=== PATIENT | female | born 1960 | race Caucasian/White ===

== ENCOUNTER 2020-05-01 14:26 | Outpatient (CLI) | payer MEDICARE, SELFPAY ==
[2020-05-01 14:47] LABS: Basophils Absolute Auto 0.04 K/mm3 (0.00-0.10); Basophils Percent Auto 0.6 % (0.0-1.0); Eosinophils Absolute Auto 0.08 K/mm3 (0.02-0.50); Eosinophils Percent Auto 1.2 % (1.0-6.0); Hematocrit 36.8 % (35.0-49.0); Hemoglobin 12.1 g/dL (12.0-15.0); Immature Granulocyte Absolute 0.03 K/mm3 (0.00-0.00); Immature Granulocyte Percent A 0.5 % (0.0-0.0); Lymphocytes Absolute Auto 2.01 K/mm3 (1.10-4.50); Lymphocytes Percent Auto 30.3 % (18.0-42.0); Mean Corpuscular HGB Conc 32.9 g/dL (32.0-36.0); Mean Corpuscular Hemoglobin 29.2 pg (27.0-31.0); Mean Corpuscular Volume 88.7 fL (78.0-102.0); Mean Platelet Volume 8.6 fl (9.2-11.8); Monocytes Absolute Auto 0.62 K/mm3 (0.10-0.90); Monocytes Percent Auto 9.4 % (2.0-11.0); Neutrophils Absolute Auto 3.9 K/mm3 (1.7-7.2); Platelet Count Result 261 K/mm3 (150-420); Red Blood Count 4.15 M/mm3 (4.20-5.40); Red Cell Distribution Width 15.1 % (11.6-14.4); White Blood Count 6.6 K/mm3 (4.8-10.8)
[2020-05-01 15:27] LABS: Alanine Aminotransferase 34 U/L (14-59); Albumin Level 4.3 g/dL (3.4-5.0); Alkaline Phosphatase 90 U/L (46-116); Anion Gap 11 mmol/L (8-16); Aspartate Amino Transferase 17 U/L (15-37); Bilirubin,Total 0.3 mg/dL (0.00-1.00); Blood Urea Nitrogen 21 mg/dL (7-18); Calcium 9.7 mg/dL (8.5-10.1); Carbon Dioxide 27 mmol/L (21-32); Chloride 102 mmol/L (98-108); Cholesterol 195 mg/dL (0-200); Estimated Glomerular Filt Rate 40; Glucose 101 mg/dL (70-99); HDL Direct 50 mg/dL (40-60); LDL Cholesterol Calculated 73 mg/dL (<130); Osmolality Calculated 293 mOsm/kg (285-295); Potassium 4.1 mmol/L (3.5-5.1); Sodium 140 mmol/L (136-145); Total Protein 7.6 g/dL (6.4-8.2); Triglycerides 358 mg/dL (0-150)
[2020-05-01 15:46] LABS: Thyroid Stimulating Hormone Reflex 3.28 u/IU/mL (0.36-3.74)
== END 2020-05-01 14:27 | disposition home or self-care (01) ==
LOC: CHSLAB 14:27
PROVIDERS: PCP Family Medicine; Visit Provider Family Medicine
DX: I10 Essential (primary) hypertension (principal)
CPT/HCPCS: 36415; 80053; 80061; 84443; 85025

== ENCOUNTER 2020-12-18 10:24 | Outpatient (CLI) | payer MEDICARE, SELFPAY ==
--- NOTE | ~2020-12-18 | XR_ITS ---
EXAMINATION: XR foot LT 2V EXAM DATE: 12/18/2020 10:37 INDICATION: Lt Heel Pain,Nki,?Plantar fasciitis. TECHNIQUE: Frontal and lateral projections of the left foot. There is no prior study for comparison . FINDINGS: Small to moderate-sized left calcaneal posterior spur. No periosteal reaction or band of s clerosis to suggest subacute stress fracture. There is mild 1st metatarsophalangeal primary osteoarth ritis. There are no acute fractures or dislocations identified. There is no subcutaneous gas. The s oft tissue is unremarkable. There are no radiopaque foreign bodies. IMPRESSION: 1. Mild left 1st MTP osteoarthritis. 2. Posterior calcaneal spur. Reviewed, dictated and finalized at location B.
== END 2020-12-18 10:25 | disposition home or self-care (01) ==
LOC: CHSIMG 10:25
PROVIDERS: PCP Family Medicine; Visit Provider Family Medicine
DX: M79.672 Pain in left foot (principal); M76.62 Achilles tendinitis, left leg
CPT/HCPCS: 73620

== ENCOUNTER 2021-05-12 08:49 | Outpatient (CLI) | payer MEDICARE, SELFPAY ==
[2021-05-12 09:40] LABS: Anion Gap 10 mmol/L (8-16); Blood Urea Nitrogen 35 mg/dL (7-18); Calcium 9.3 mg/dL (8.5-10.1); Carbon Dioxide 25 mmol/L (21-32); Chloride 102 mmol/L (98-108); Estimated Glomerular Filt Rate 34; Glucose 106 mg/dL (70-99); Osmolality Calculated 292 mOsm/kg (285-295); Phosphorus 4.4 mg/dL (2.6-4.7); Potassium 4.3 mmol/L (3.5-5.1); Sodium 137 mmol/L (136-145)
[2021-05-12 09:41] LABS: Total Protein Urine Random 17.4 mg/dL (0.0-11.9); Ur Ttl Prot Creatinine Ratio 0.14 mg/mg (0-0.20)
[2021-05-15 13:10] LABS: Parathyroid Intact 30 pg/mL (14-64)
[2021-05-15 15:12] LABS: Vitamin D 25 Hydroxy 39 ng/mL (30-100)
== END 2021-05-12 08:50 | disposition home or self-care (01) ==
LOC: CHSLAB 08:52
PROVIDERS: PCP Nurse Practitioner Family; Visit Provider Internal Medicine Nephrology
DX: E55.9 Vitamin D deficiency, unspecified (principal); I12.9 Hypertensive chronic kidney disease with stage 1 through stage 4 chronic kidney disease, or unspecified chronic kidney disease; N18.31 Chronic kidney disease, stage 3a
CPT/HCPCS: 36415; 80069; 82306; 82570; 83970; 84156

== ENCOUNTER 2021-06-10 08:43 | Outpatient (RCR) | payer MEDICARE, SELFPAY ==
--- NOTE | 2021-06-10 10:05 | PTOPEVAL ---
Thank you for referring Nicki Romano to [facility].? The patient is scheduled to be seen for therapy? ____x/week for ___ weeks. Please review, sign, date and return this plan of care ANDERSON. I agree with and certify that the following plan of care is medically necessary. Referring Physician Date Admitting Provider: Attending Provider: Yann Jacobs DPM Referring Provider: DiazPT Outpatient Evaluation Start: 06/10/21 09:07 Freq: Status: Active Protocol: Document 06/10/21 09:05 [facility] (Rec: 06/10/21 10:04 JUAN [id number]) Therapy Assessment Status Assessment Status Assessment Status Evaluation Outpatient Past Medical History Cardiovascular History Hx Hypertension Yes Respiratory History Hx Chronic Obstructive Pulmonary Disease Yes: dx, denies (COPD) Gastrointestinal History Hx Gastroesophageal Reflux Disease Yes Musculoskeletal History Hx Fractures Yes: rt wrist, hardware post- op HEENT History Hx Tonsillectomy Yes Psychosocial History Hx Anxiety Yes Hx Depression Yes Evaluation Information Problem Diagnosis R plantar and L heel pain Onset 06/02/21 Additional Evaluation Detail LEFS = Subjective Information patient reports about 4-5 Query Text:As Reported By Patient/ months ago she began having Family pain in the L heel. she reports she is now pain free in the L heel as she was in a boot for 2 months. she reports since being in the boot she has developed plantar foot pain in the R foot from overuse. she reports she has increased pain in the R foot with standing and walking. she reports she has ahd an injection to the R foot. she reports no help from injections. she reports no imaging as of this date. Prior Level of Function Comments Additional Prior Level of Function prior to 4-5 months ago, no Comments issues with either foot/ankle. she reports she would like to get back to walk full grocery store and complete home activities without pain. Pain Assessment Timing of Pain Assessment Timing of Pain Assessment Assessment Pain Scale Pain Scale Used Numeric (1 - 10) Self Report Pain Assessment
--- NOTE | 2021-06-18 14:54 | PCPTNOTE ---
Pt. contacted the clinic via phone stating that she was hurting too bad and needed a sleep study. She stated that she did not have time to attend therapy and requested discharge. Please refer to her last daily note for pt. discharge status. Haseeb Cox, MPT
== END 2021-06-17 14:08 | disposition home or self-care (01) ==
LOC: CHSPT 08:43
PROVIDERS: PCP Podiatrist; Visit Provider Podiatrist
DX: M72.2 Plantar fascial fibromatosis (principal); M76.62 Achilles tendinitis, left leg
CPT/HCPCS: 97110; 97140; 97161

== ENCOUNTER 2021-07-07 10:55 | Emergency (ER) | payer MEDICARE, SELFPAY ==
--- NOTE | ~2021-07-07 | CT_ITS ---
EXAMINATION: CT brain wo con DATE: 07/07/2021 11:51 INDICATION: Dizziness. Vertigo. Right ear pain. TECHNIQUE: Computed tomography (CT) of the head was performed without intravenous contrast. The mA wa s adjusted according to patient size. Iterative reconstruction technique was employed. The dose-lengt h product was 605.33 mGy-cm. COMPARISON: None FINDINGS: There is a small old infarct in left cerebellum. There are scattered areas of low attenuati on in the cerebral white matter. There is no intracranial hemorrhage, acute infarction, or abnormal i ntracranial mass lesion. The ventricles are normal in size. There is mild mucosal thickening in the p aranasal sinuses. The mastoid air cells are normal. The orbits are normal. IMPRESSION: 1. Small old infarct in left cerebellum. 2. Mild nonspecific cerebral white matter disease, which likely represents chronic small vessel ische jessica disease. Reviewed, dictated and finalized at location B. IMPRESSION: 1. Small old infarct in left cerebellum. 2. 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
[2021-07-07 11:00] VITALS: BP 165/88; PULSE 60; RESP 16; TEMP 36.5; O2SAT 97
--- NOTE | 2021-07-07 11:12 | ED.DIZZY ---
HPI - Dizziness General Chief Complaint: Dizziness Stated Complaint: DIZZY Time Seen by Provider: 07/07/21 11:13 History of Present Illness HPI Narrative: 60-year-old female patient is sent to the ED are by the nurse practitioner from a local clinic for further evaluation of dizziness. The patient states that she has had dizziness for the last 1 week or so where she feels that the room is spinning. The symptoms get worse as she gets up from a lying down position to sitting up or standing up. She has not sustained any falls or felt like passing out at any time until now. And she did explain experiencing some palpitations in the middle of the last week while she was resting. She denies any associated headache however she does have an ache in the right ear which was preceded by upper respiratory tract infection symptoms about a week ago and was diagnosed as having a viral syndrome. Patient did have a negative COVID and flu test done at that time. She is otherwise COVID vaccinated and has had no known exposures. She denies any chest pain. She denies any neck or jaw pain. She denies any tremors. Related Data Home Medications Medication Instructions Recorded Confirmed alprazolam 1 mg PO DAILY 01/20/19 07/07/21 aspirin 81 mg tablet,delayed 81 mg PO DAILY 05/01/20 07/07/21 release cholecalciferol (vitamin D3) 100 100 mcg PO DAILY 05/01/20 07/07/21 mcg (4,000 unit) capsule magnesium oxide 400 mg (241.3 mg 400 mg PO DAILY tablet 05/01/20 07/07/21 magnesium) tablet sertraline 50 mg tablet 100 mg PO DAILY tablet 08/01/20 07/07/21 quetiapine 200 mg tablet 200 mg PO QHS 06/02/21 07/07/21 lisinopril 5 mg PO DAILY 07/07/21 07/07/21 Allergies Allergy/AdvReac Type Severity Reaction Status Date / Time No Known Allergies Allergy Verified 07/07/21 11:18 Review of Systems Review of Systems: All systems reviewed & are unremarkable except as noted in HPI and below Constitutional: Constitutional: Reports as per HPI and Reports no additional constitutional complaints Eyes: Eyes: Reports as per HPI, Reports no additional eye complaints, Denies change in vision and Denies photophobia ENT: Reports system reviewed and no additional complaints, except as documented and Reports vertigo Comments: Right earache Cardiovascular: Cardiovascular: Reports as per HPI, Reports no additional cardiovascular complaints, Denies chest pain, Reports rapid heart rate, Denies radiating jaw, neck or arm pain and Denies slow heart rate Comments: had one episode of fast heart rate last week Respiratory: Respiratory: Reports as per HPI, Reports no additional respiratory complaints, Denies chest congestion, Denies cough, Denies dyspnea and Denies wheezing Gastrointestinal: Gastrointestinal: Reports no additional gastrointestinal complaints, Denies abdominal pain, Denies bloating, Denies heartburn, Denies diarrhea, Denies nausea and Denies vomiting Genitourinary: Genitourinary: Reports no additional female genitourinary complaints Musculoskeletal: Musculoskeletal: Reports no additional musculoskeletal complaints Integumentary/Breasts: Skin/Breast: Reports system reviewed and no additional complaints, except as docu Neurologic: Reports system reviewed and no additional complaints, except as documented Psychiatric: Psychiatric: Reports no additional psychiatric complaints Endocrine: Endocrine: Reports no additional endocrine complaints Hematologic/Lymphatic: Hematologic/Lymphatic: Reports no additional hematologic/lymphatic complaints Allergic/Immunologic: Allergic/Immunologic: Reports no additional allergic/immunologic complaints [facility] Past Medical History Medical History (Updated 07/07/21 @ 12:20 by Darlene Carcamo MD) CKD (chronic kidney disease) stage 3, GFR 30-59 ml/min COPD (chronic obstructive pulmonary disease) Depression Diverticulosis Dyslipidemia Hypertension Obesity PTSD (post-traumatic stress disorder) Upper respiratory infection S
--- NOTE | 2021-07-07 11:20 | ECG_ITS ---
Measurements Intervals [place] Rate: 49 P: 4 KS: 148 QRS: 7 QRSD: 84 T: 23 QT: 424 QTc: 384 Interpretive Statements SINUS BRADYCARDIA WITH SINUS ARRHYTHMIA MINIMAL Q WAVES- HIGH LATERAL LEADS ABNORMAL ECG Electronically Signed On 07-07-2021 11:50:39 CDT by Vladimir Garcia D.O.
[2021-07-07 11:36] LABS: Basophils Absolute Auto 0.02 K/mm3 (0.00-0.10); Basophils Percent Auto 0.4 % (0.0-1.0); Eosinophils Percent Auto 1.9 % (1.0-6.0); Hemoglobin 11.8 g/dL (12.0-15.0); Immature Granulocyte Absolute 0.04 K/mm3 (0.00-0.00); Immature Granulocyte Percent A 0.8 % (0.0-0.0); Lymphocytes Absolute Auto 1.44 K/mm3 (1.10-4.50); Lymphocytes Percent Auto 27.4 % (18.0-42.0); Mean Corpuscular HGB Conc 32.8 g/dL (32.0-36.0); Mean Corpuscular Hemoglobin 30.7 pg (27.0-31.0); Mean Corpuscular Volume 93.8 fL (78.0-102.0); Mean Platelet Volume 8.4 fl (9.2-11.8); Monocytes Absolute Auto 0.45 K/mm3 (0.10-0.90); Monocytes Percent Auto 8.6 % (2.0-11.0); Neutrophils Absolute Auto 3.2 K/mm3 (1.7-7.2); Neutrophils Percent Auto 60.9 % (50.0-70.0); Platelet Count Result 238 K/mm3 (150-420); Red Blood Count 3.84 M/mm3 (4.20-5.40); Red Cell Distribution Width 13.8 % (11.6-14.4); White Blood Count 5.3 K/mm3 (4.8-10.8)
[2021-07-07 12:02] LABS: Add Urine Microscopic? YES; Appearance Urine Clear (Clear); Bilirubin Urine Negative (Negative); Blood Urine Negative (Negative); Color Urine Light Yellow (Yellow); Glucose Urine UA Negative (Negative); Ketones Urine Negative (Negative); Leukocyte Esterase Ur Trace (Negative); Nitrate Urine Negative (Negative); Protein Urine Negative (Negative); Urobilinogen Urine 0.2 mg/dL (0.2-1.0); pH Urine 6.5 (5.0-8.0)
[2021-07-07 12:03] LABS: Alanine Aminotransferase 24 U/L (14-59); Albumin Level 3.7 g/dL (3.4-5.0); Alkaline Phosphatase 70 U/L (46-116); Anion Gap 7 mmol/L (8-16); Aspartate Amino Transferase 16 U/L (15-37); Bilirubin,Total 0.3 mg/dL (0.00-1.00); Blood Urea Nitrogen 20 mg/dL (7-18); Calcium 8.7 mg/dL (8.5-10.1); Carbon Dioxide 28 mmol/L (21-32); Chloride 103 mmol/L (98-108); Estimated CRCL calculation 40 ml/min; Estimated Glomerular Filt Rate 42; Free T4 Free Thyroxine 0.79 ng/dL (0.76-1.46); Glucose 91 mg/dL (70-99); Magnesium 2.2 mg/dL (1.8-2.4); Osmolality Calculated 288 mOsm/kg (285-295); Potassium 4.5 mmol/L (3.5-5.1); Sodium 138 mmol/L (136-145); Total Protein 6.9 g/dL (6.4-8.2); Troponin I 5.9 ng/L (0.00-60.4)
[2021-07-07 12:05] LABS: Thyroid Stimulating Hormone 4.28 uIU/mL (0.36-3.74)
[2021-07-07 12:10] LABS: Bacteria Urine Trace /hpf; RBC Urine 0-2 /hpf (0-2); Squamous Epithelial Cell Urine None seen /hpf (Few); WBC Urine 0-3 /hpf (0-3)
[2021-07-07 12:21] VITALS: BP 139/88; PULSE 60; RESP 16; O2SAT 98
--- NOTE | 2021-07-07 12:39 | PC.NURSE ---
pt asked again to call someone to come get her and advised not to drive. pt states she does not have anyone to call. pmd office staff contacted. there is a daughter on her chart. pt asked to call daughter to help her get home. pt declined. stated daughter is going home to [place]. pt refused assistance. pt got into her car and started looking at her phone.
== END 2021-07-07 12:23 | disposition home or self-care (01) ==
PROVIDERS: Emergency Provider Emergency Medicine; PCP Nurse Practitioner Family
DX: R42 Dizziness and giddiness (principal); I12.9 Hypertensive chronic kidney disease with stage 1 through stage 4 chronic kidney disease, or unspecified chronic kidney disease; N18.30 Chronic kidney disease, stage 3 unspecified; J44.9 Chronic obstructive pulmonary disease, unspecified; E78.5 Hyperlipidemia, unspecified
CPT/HCPCS: 36415; 70450; 80053; 81001; 83735; 84439; 84443; 84484; 85025; 93005; 99284

== ENCOUNTER 2021-08-05 17:57 | Emergency (ER) | payer MEDICARE, SELFPAY ==
--- NOTE | ~2021-08-05 | XR_ITS ---
EXAMINATION: XR chest 1V portable Exam Date/Time: 08/05/2021 19:00 CDT HISTORY: tightness across center of chest Comparison: 01/09/2019. RESULT: Lines, tubes, and devices: None. Lungs and pleura: Clear. Cardiomediastinal silhouette: Stable cardiomediastinal silhouette. Other: No acute osseous or upper abdominal finding. IMPRESSION: No acute cardiopulmonary process. Reviewed, dictated and finalized at location K.
[2021-08-05 18:00] VITALS: BP 175/93; PULSE 70; RESP 20; TEMP 36.4; O2SAT 99
--- NOTE | 2021-08-05 18:58 | ECG_ITS ---
Measurements Intervals [place] Rate: 61 P: -60 LA: 103 QRS: -1 QRSD: 85 T: 21 QT: 389 QTc: 392 Interpretive Statements ECTOPIC ATRIAL RHYTHM WITH SHORT LA INTERVAL NONSPECIFIC T-WAVE ABNORMALITY ABNORMAL ECG COMPARED TO ECG 07/07/2021 11:35:51 ECTOPIC ATRIAL RHYTHM NOW PRESENT Electronically Signed On 08-06-2021 10:01:33 CDT by Bart Gomez M.D.
[2021-08-05 19:12] LABS: Basophils Absolute Auto 0.06 K/mm3 (0.00-0.10); Basophils Percent Auto 0.7 % (0.0-1.0); Eosinophils Absolute Auto 0.02 K/mm3 (0.02-0.50); Eosinophils Percent Auto 0.2 % (1.0-6.0); Hematocrit 35.8 % (35.0-49.0); Hemoglobin 12.1 g/dL (12.0-15.0); Immature Granulocyte Absolute 0.16 K/mm3 (0.00-0.00); Immature Granulocyte Percent A 1.7 % (0.0-0.0); Lymphocytes Absolute Auto 3.37 K/mm3 (1.10-4.50); Lymphocytes Percent Auto 36.6 % (18.0-42.0); Mean Corpuscular HGB Conc 33.8 g/dL (32.0-36.0); Mean Corpuscular Hemoglobin 31.2 pg (27.0-31.0); Mean Corpuscular Volume 92.3 fL (78.0-102.0); Mean Platelet Volume 8.4 fl (9.2-11.8); Monocytes Absolute Auto 0.95 K/mm3 (0.10-0.90); Monocytes Percent Auto 10.3 % (2.0-11.0); Neutrophils Absolute Auto 4.7 K/mm3 (1.7-7.2); Neutrophils Percent Auto 50.5 % (50.0-70.0); Platelet Count Result 262 K/mm3 (150-420); Red Blood Count 3.88 M/mm3 (4.20-5.40); Red Cell Distribution Width 14.3 % (11.6-14.4); White Blood Count 9.2 K/mm3 (4.8-10.8)
[2021-08-05] MEDS: SODIUM CHLORIDE 0.9% IV 1,000 ML 999 ML IV CONT (19:29)
[2021-08-05 19:31] LABS: Alanine Aminotransferase 29 U/L (14-59); Albumin Level 3.6 g/dL (3.4-5.0); Alkaline Phosphatase 63 U/L (46-116); Anion Gap 8 mmol/L (8-16); Aspartate Amino Transferase 13 U/L (15-37); Bilirubin,Total 0.2 mg/dL (0.00-1.00); Blood Urea Nitrogen 26 mg/dL (7-18); Calcium 8.6 mg/dL (8.5-10.1); Carbon Dioxide 29 mmol/L (21-32); Chloride 103 mmol/L (98-108); Estimated Glomerular Filt Rate 35; Glucose 144 mg/dL (70-99); Osmolality Calculated 297 mOsm/kg (285-295); Potassium 3.6 mmol/L (3.5-5.1); Sodium 140 mmol/L (136-145); Total Protein 7.1 g/dL (6.4-8.2)
[2021-08-05] MEDS: MECLIZINE HCL 25 MG TABLET 50 MG PO (19:31)
[2021-08-05 19:32] LABS: Troponin I 6.8 ng/L (0.00-60.4)
--- NOTE | 2021-08-05 19:47 | ED.GENADULT ---
HPI - General Adult General Chief complaint: Chest Pain Stated complaint: AMB History of Present Illness HPI narrative: the patient is a 60-year-old woman with a history of anxiety disorder, hyperlipidemia, GERD, obesity, depression, hypertension, PTSD, and chronic kidney disease. She is a nonsmoker. She takes aspirin 81 mg once daily. She Had seen her primary care physician on 07/24/2021, 12 days ago, due to right ear pain and continued symptoms of dizziness and upper respiratory infection symptoms. She was treated with meclizine and Zyrtec. The dizziness had resolved subsequently. The patient did not feel well today. She had chest pressure in the center aspect of her chest radiating to her back, associated with dizziness but no nausea or vomiting. No abdominal pain. The pressure was mild and resolved subsequently. She did receive Zofran 4 mg IV by EMS. No diarrhea or constipation. No motor or sensory deficits. No headache. No falls or loss of consciousness or syncope or seizures. No blurred vision or diplopia. No dyspnea or cough or upper respiratory tract infection symptoms. Related Data Home Medications Medication Instructions Recorded Confirmed alprazolam 1 mg tablet 1 mg PO DAILY 01/20/19 07/07/21 aspirin 81 mg tablet,delayed 81 mg PO DAILY 05/01/20 07/07/21 release (Adult Aspirin Regimen) cholecalciferol (vitamin D3) 100 100 mcg PO DAILY 05/01/20 07/07/21 mcg (4,000 unit) capsule magnesium oxide 400 mg (241.3 mg 400 mg PO DAILY 05/01/20 07/07/21 magnesium) tablet sertraline 50 mg tablet (Zoloft) 100 mg PO DAILY 08/01/20 07/07/21 quetiapine 200 mg tablet (Seroquel) 200 mg PO QHS 06/02/21 07/07/21 lisinopril 5 mg tablet 5 mg PO DAILY 07/07/21 07/07/21 Allergies Allergy/AdvReac Type Severity Reaction Status Date / Time No Known Allergies Allergy Verified 07/24/21 10:49 Review of Systems Review of Systems: All systems reviewed & are unremarkable except as noted in HPI and below Constitutional: Constitutional: Reports no additional constitutional complaints, Denies anorexia, Denies body ache(s), Denies chills, Denies excessive sweating, Denies fatigue, Denies fever(s), Denies frequent falls, Denies headache(s), Reports malaise and Denies poor appetite Eyes: Eyes: Reports no additional eye complaints, Denies blurry vision, Denies change in vision, Denies irritation, Denies itchy eyes and Denies photophobia ENT: Reports system reviewed and no additional complaints, except as documented, Reports Normal hearing present, Denies change in voice, Denies dysphagia, Denies vertigo, Reports dizziness, Denies ear discharge, Denies headache(s), Denies hearing loss, Denies hoarseness, Denies nasal congestion, Denies neck pain, Denies sinus pressure, Denies sore throat and Denies throat swelling Cardiovascular: Cardiovascular: Reports no additional cardiovascular complaints, Reports chest pain (described as chest pressure not pain.), Denies syncope, Denies rapid heart rate, Denies irregular heart rhythm, Denies leg edema, Denies dyspnea and Denies slow heart rate Respiratory: Respiratory: Reports no additional respiratory complaints, Denies cough, Denies dyspnea, Denies stridor and Denies wheezing Gastrointestinal: Gastrointestinal: Reports no additional gastrointestinal complaints, Denies abdominal pain, Denies melena, Denies hematochezia, Denies dysphagia, Denies diarrhea, Denies nausea and Denies vomiting Genitourinary: Genitourinary: Denies hematuria, Denies urinary frequency, Denies dysuria, Denies flank pain and Denies urinary urgency Musculoskeletal: Musculoskeletal: Reports no additional musculoskeletal complaints, Denies abnormal gait, Denies back pain, Denies myalgias, Denies arthralgias, Denies joint swelling, Denies limited range of motion, Denies muscle cramps, Denies muscle weakness, Denies neck pain and Denies numbness Integumentary/Breasts: Skin/Breast: Reports system reviewed and no additional complain
[2021-08-05 19:50] VITALS: BP 163/87; PULSE 53
[2021-08-05 19:54] VITALS: BP 185/93; PULSE 53
[2021-08-05 19:59] VITALS: BP 190/85; PULSE 65
--- NOTE | 2021-08-05 20:10 | PC.NURSE ---
no need to collect urine prior to patient discharge per Md Donnelly
[2021-08-05 20:55] VITALS: BP 157/85; PULSE 56; RESP 18; TEMP 36.7; O2SAT 98
== END 2021-08-05 21:00 | disposition home or self-care (01) ==
PROVIDERS: Emergency Provider Emergency Medicine; PCP Nurse Practitioner Family
DX: R07.9 Chest pain, unspecified (principal); R42 Dizziness and giddiness; E78.5 Hyperlipidemia, unspecified; K21.9 Gastro-esophageal reflux disease without esophagitis; I10 Essential (primary) hypertension; N18.9 Chronic kidney disease, unspecified; J44.9 Chronic obstructive pulmonary disease, unspecified
CPT/HCPCS: 36415; 71045; 80053; 84484; 85025; 93005; 96360; 99284; A9270; J7030

== ENCOUNTER 2021-10-21 13:56 | Outpatient (CLI) | payer MEDICARE, SELFPAY ==
[2021-10-21 14:11] LABS: Hematocrit 35.6 % (35.0-49.0); Hemoglobin 11.9 g/dL (12.0-15.0); Mean Corpuscular HGB Conc 33.4 g/dL (32.0-36.0); Mean Corpuscular Hemoglobin 31.4 pg (27.0-31.0); Mean Corpuscular Volume 93.9 fL (78.0-102.0); Mean Platelet Volume 8.6 fl (9.2-11.8); Platelet Count Result 217 K/mm3 (150-420); Red Blood Count 3.79 M/mm3 (4.20-5.40); White Blood Count 5.9 K/mm3 (4.8-10.8)
[2021-10-21 14:23] LABS: Hemoglobin A1C 5.8 % (<5.7)
[2021-10-21 14:52] LABS: Alanine Aminotransferase 33 U/L (14-59); Albumin Level 4.4 g/dL (3.4-5.0); Alkaline Phosphatase 64 U/L (46-116); Anion Gap 8 mmol/L (8-16); Aspartate Amino Transferase 24 U/L (15-37); Bilirubin,Total 0.5 mg/dL (0.00-1.00); Blood Urea Nitrogen 19 mg/dL (7-18); Calcium 9.7 mg/dL (8.5-10.1); Carbon Dioxide 28 mmol/L (21-32); Chloride 103 mmol/L (98-108); Estimated Glomerular Filt Rate 37; Glucose 98 mg/dL (70-99); Osmolality Calculated 290 mOsm/kg (285-295); Potassium 4.3 mmol/L (3.5-5.1); Sodium 139 mmol/L (136-145); Total Protein 7.5 g/dL (6.4-8.2); Vitamin B12 779 pg/mL (193-986)
[2021-10-21 14:54] LABS: Thyroid Stimulating Hormone Reflex 3.48 u/IU/mL (0.36-3.74)
== END 2021-10-21 13:57 | disposition home or self-care (01) ==
LOC: CHSLAB 14:00
PROVIDERS: PCP Family Medicine; Visit Provider Family Medicine
DX: R41.89 Other symptoms and signs involving cognitive functions and awareness (principal); E11.9 Type 2 diabetes mellitus without complications; E53.8 Deficiency of other specified B group vitamins
CPT/HCPCS: 36415; 80053; 82607; 82746; 83036; 84443; 85027

== ENCOUNTER 2021-10-28 08:33 | Outpatient (CLI) | payer MEDICARE, MEDICAID, SELFPAY ==
--- NOTE | ~2021-10-28 | MR_ITS ---
EXAMINATION: MR brain/brain stem wo con DATE: 10/28/2021 09:12 INDICATION: Cognitive decline. Unsteady gait. Headache. TECHNIQUE: Magnetic resonance imaging (MRI) of the brain and brainstem was performed without intraven ous contrast. COMPARISON: Head CT 07/07/2021 FINDINGS: There is a small acute infarct in right occipital lobe. There are scattered areas of nonspe cific increased T2-weighted signal intensity in the cerebral white matter. There is a small old infar ct in left cerebellum. There is no intracranial hemorrhage or abnormal mass lesion. The ventricles ar e normal in size. The orbits are normal. There is mild mucosal thickening in the ethmoid sinuses. IMPRESSION: 1. Small acute infarct in right occipital lobe. 2. Small old infarct in left cerebellum. 3. Mild nonspecific cerebral white matter disease, which likely represents chronic small vessel ische jessica disease. Reviewed, dictated and finalized at location A. IMPRESSION: 1. Small acute infarct in right occipital lobe. 2. Small old infarct in left cerebellum. 3. Mild nonspecific cerebral white matter disease, which likely represents machine former yady small vessel ischemic disease.
== END 2021-10-28 08:34 | disposition home or self-care (01) ==
LOC: CHSIMG 08:34
PROVIDERS: PCP Family Medicine; Visit Provider Family Medicine
DX: R41.89 Other symptoms and signs involving cognitive functions and awareness (principal)
CPT/HCPCS: 70551

== ENCOUNTER 2021-10-30 12:56 | Outpatient (CLI) | payer MEDICARE, SELFPAY ==
[2021-10-30 13:13] LABS: Hematocrit 34.9 % (35.0-49.0); Hemoglobin 11.4 g/dL (12.0-15.0); Mean Corpuscular HGB Conc 32.7 g/dL (32.0-36.0); Mean Corpuscular Hemoglobin 31.1 pg (27.0-31.0); Mean Corpuscular Volume 95.1 fL (78.0-102.0); Mean Platelet Volume 8.4 fl (9.2-11.8); Platelet Count Result 214 K/mm3 (150-420); Red Blood Count 3.67 M/mm3 (4.20-5.40); White Blood Count 8.9 K/mm3 (4.8-10.8)
[2021-10-30 13:29] LABS: Alanine Aminotransferase 26 U/L (14-59); Albumin Level 3.9 g/dL (3.4-5.0); Alkaline Phosphatase 73 U/L (46-116); Anion Gap 9 mmol/L (8-16); Aspartate Amino Transferase 18 U/L (15-37); Bilirubin,Total 0.5 mg/dL (0.00-1.00); Blood Urea Nitrogen 22 mg/dL (7-18); Calcium 9.4 mg/dL (8.5-10.1); Carbon Dioxide 27 mmol/L (21-32); Chloride 104 mmol/L (98-108); Estimated Glomerular Filt Rate 41; Glucose 113 mg/dL (70-99); Osmolality Calculated 294 mOsm/kg (285-295); Potassium 4.3 mmol/L (3.5-5.1); Sodium 140 mmol/L (136-145); Total Protein 7.1 g/dL (6.4-8.2)
[2021-10-30 13:40] LABS: Ethanol < 3 mg/dL (0-6)
== END 2021-10-30 12:57 | disposition home or self-care (01) ==
LOC: CHSLAB 12:57
PROVIDERS: PCP Family Medicine; Visit Provider Family Medicine
DX: K21.9 Gastro-esophageal reflux disease without esophagitis (principal); R40.0 Somnolence; I10 Essential (primary) hypertension
CPT/HCPCS: 36415; 80053; 80307; 85027

== ENCOUNTER 2021-11-04 10:43 | Outpatient (CLI) | payer MEDICARE, MEDICAID, SELFPAY ==
--- NOTE | ~2021-11-04 | US_ITS ---
EXAMINATION: US carotid duplex BI DATE: 11/04/2021 11:21 INDICATION: Vertigo. Dizziness and giddiness. TECHNIQUE: Grayscale, color Doppler, and pulsed Doppler images of the cervical carotid arteries were obtained. The degree of vessel stenosis is placed in one of the following categories: normal, <50%, 5 0-69%, >=70% but less than near-occlusion, near-occlusion, or total occlusion. Note that percent sten osis relative to normal distal artery lumen diameter is indirectly measured from velocity measurement s as described by Cesar, et al. Radiology 2003; 229:340-346. COMPARISON: None. FINDINGS: RIGHT: The right common carotid artery (CCA) peak systolic velocity (PSV) is 67 cm/s. The right internal car otid artery (ICA) PSV is 74 cm/s. The right ICA end-diastolic velocity (EDV) is 30 cm/s. The right IC A/CCA PSV ratio is 1.1. Grayscale and color Doppler images yield an estimate of <50% diameter reducti on from plaque in the ICA. The external carotid artery (ECA) PSV is 66 cm/s. There is antegrade flow in the right vertebral artery. LEFT: The left CCA PSV is 81 cm/s. The left ICA PSV is 61 cm/s. The left ICA EDV is 24 cm/s. The left ICA/C CA PSV ratio is 0.8. Grayscale and color Doppler images yield an estimate of <50% diameter reduction from plaque in the ICA. The ECA PSV is 85 cm/s. There is antegrade flow in the left vertebral artery. IMPRESSION: 1. <50% stenosis from minimal plaque in the right internal carotid artery. 2. <50% stenosis from minimal plaque in the left internal carotid artery. Reviewed, dictated and finalized at location A.
== END 2021-11-04 10:44 | disposition home or self-care (01) ==
LOC: CHSIMG 10:44
PROVIDERS: PCP Family Medicine; Visit Provider Family Medicine
DX: R42 Dizziness and giddiness (principal)
CPT/HCPCS: 93880

== ENCOUNTER 2021-11-14 11:54 | Outpatient (CLI) | payer MEDICARE, MEDICAID, SELFPAY ==
--- NOTE | 2021-11-14 11:59 | ECHO_ITS ---
Patient Info Name: Nicki Romano Age: 60 years : 1960 Gender: Female Ht: 63 in Wt: 180 lbs BSA: 1.94 m2 HR: 57 bpm BP: 145 / 81 mmHg Heart Rhythm: Sinus Rhythm Technical Quality: Fair Exam Date: 11/14/2021 11:59 AM Exam Location: [facility] Patient Status: Outpatient Admit Date: 11/14/2021 Staff Ordering Physician: Maldonado Rodas DO Store Protection Specialist: Tameka Gupta RDCS Attending Provider: Maldonado Rodas DO Referring Physician: Adrianna MARTINEZ; Exam Type: CA echo doppler color flow Study Info Indications - cerebral infarct, unspecified Complete two-dimensional, color flow and Doppler transthoracic echocardiogram is performed. Summary 1. Complete two-dimensional, color flow and Doppler transthoracic echocardiogram is performed. 2. Left ventricular chamber dimension is normal. 3. Left ventricular systolic function is normal, estimated at 60-65%. 4. The left ventricular diastolic function is grade I diastolic dysfunction. 5. E/e' 6 is not elevated. 6. There is mild aortic valve sclerosis. 7. There is trace aortic valve regurgitation. 8. No pulmonary hypertension, estimated pulmonary arterial systolic pressure is 17 mmHg. Left Ventricle E/e' 6 is not elevated. Left ventricular chamber dimension is normal. Left ventricular systolic function is normal, estimated at 60-65%. The left ventricular diastolic function is grade I diastolic dysfunction. Right Ventricle Right ventricular chamber dimension is normal. Right ventricular systolic function is normal. Left Atria Left atrial chamber dimension is normal. Right Atria Right atrial chamber dimension is normal. Aortic Valve The aortic valve is trileaflet. There is mild aortic valve sclerosis. There is no aortic valve stenosis. There is trace aortic valve regurgitation. Mitral Valve There is no mitral valve stenosis. There is no mitral valve regurgitation. Tricuspid Valve There is no tricuspid valve regurgitation. No pulmonary hypertension, estimated pulmonary arterial systolic pressure is 17 mmHg. Pericardium/Pleural There is no pericardial effusion. Inferior Vena Cava Normal inferior vena cava with >50% collapse upon inspiration consistent with normal right atrial pressure, 5 mmHg. Aorta The aortic root size at the sinus of Valsalva is normal. Left Ventricular Outflow Tract Name Value Normal LVOT 2D LVOT Diameter 1.9 cm LVOT Doppler LVOT Peak Velocity 92 cm/s LVOT Peak Gradient 3 mmHg LVOT Mean Gradient 2 mmHg LVOT VTI 19 cm LVOT VTI/AV VTI Ratio 0.7 LVOT Stroke Volume 54 ml Pulmonic Valve Name Value Normal RVOT Doppler RVOT Peak Gradient 3 mmHg
== END 2021-11-14 11:55 | disposition home or self-care (01) ==
LOC: CHSIMG 11:55
PROVIDERS: PCP Family Medicine; Visit Provider Family Medicine
DX: I63.9 Cerebral infarction, unspecified (principal); I10 Essential (primary) hypertension
CPT/HCPCS: 93306

== ENCOUNTER 2021-11-26 07:25 | Outpatient (CLI) | payer MEDICARE, MEDICAID, SELFPAY ==
--- NOTE | ~2021-11-26 | US_ITS ---
EXAMINATION: US pelvic complete DATE: 11/26/2021 08:06 INDICATION: Left lower quadrant abdominal pain. TECHNIQUE: Multiple transabdominal sonographic images of the pelvis were obtained. COMPARISON: CT abdomen and pelvis 02/20/2009 FINDINGS: The uterus is absent. The ovaries are not visualized. There is no ascites. IMPRESSION: 1. Absent uterus. 2. Ovaries not visualized. Reviewed, dictated and finalized at location A.
--- NOTE | ~2021-11-26 | US_ITS ---
US abdomen complete EXAMINATION: US Abdomen Complete INDICATION: Left upper quadrant pain PROCEDURE: Realtime High Resolution abdomen ultrasound. COMPARISON: No prior studies for comparison FINDINGS: Gallbladder within normal limits. No gallstones, pericholecystic fluid, gallbladder wall t hickening or biliary dilatation. Common bile duct measures 3 mm. Liver echotexture is increased, consistent with fatty infiltration.. Pancreas within normal limits. Pancreatic tail is obscured by bowel gas. Spleen contains a small 6 mm cyst. Renal echotexture is w ithin normal limits bilaterally without hydronephrosis, contour deforming mass or renal stone. There is a small 1.3 cm right renal cyst. There is a small echogenic right renal foci measuring 4 mm, possi adolfo a nonobstructing right renal stone. Right kidney measures 9.6 cm. Left kidney measures 9.6 cm. Visualized aspects of the aorta and IVC are within normal limits. Portal vein is patent. No sonograph ic Richard's sign indicated by the technologist. IMPRESSION: 1: Hepatic steatosis. 2: Right renal and splenic cysts. 3: Echogenic foci in the right kidney measuring 4 mm, possibly nonobstructing renal stone. Reviewed, dictated and finalized at location B. IMPRESSION: 1: Hepatic steatosis. 2: Right renal and splenic cysts. 3: Echogenic foci in the right kidney measuring 4 mm, possibly nonobstructing r enal stone.
== END 2021-11-26 07:26 | disposition home or self-care (01) ==
PROVIDERS: Visit Provider Physician Assistant
DX: R10.32 Left lower quadrant pain (principal)
CPT/HCPCS: 76700; 76856

== ENCOUNTER 2022-02-25 09:19 | Outpatient (RCR) | payer MEDICARE, MEDICAID, SELFPAY ==
--- NOTE | 2022-02-25 10:50 | PTOPEVAL1 ---
Assessment and note entered by Keri Cueto, PT Evaluation Information Assessment Status Evaluation Diagnosis R patellofemoral knee pain Onset 02/19/22 Subjective Information Nicki Romano reports she hit her right knee on a piece of ornamental wood underneath a bar about 2 months ago twice then she hit it again on ceramic tile while on her hands and knees cleaning. Her pain did not go away so she went to her primary care physician who ordered x-rays. She then requested to see an instructional services specialist. She states the specialist told her that her kneecap is floating. She was given a brace to wear to help with the kneecap. She is having difficulty wearing the brace because it slips down and she has rubbing on the back of the knee. She notes increased right knee pain when she is walking and bending the knee. She notes stiffness in the right knee upon waking. She has a history of chronic back pain and has been using a cane to walk prior to the onset of right knee pain. Reported Pain Level Pain Score 4: Self Report Assessment PT Clinical Summary Nicki Romano presents with right knee pain after hitting it several times in the last 2 months. She has been diagnosed with patellofemoral syndrome. She has increased pain and stiffness in the am and worse pain with walking and bending the right knee. She objectively demonstrates lateral tilt and tracking in the right patellofemoral joint, decreased right knee and hip strength with pain elicited during testing, tenderness at the right medial patella, palpable clicking at the right lateral patella with active knee flexion to extension, impaired gait, and decreased functional abilities. She has chronic low back pain as well which is contributing to decreased strength, decreased endurance, poor tolerance for supine position, and impaired gait. She will benefit from skilled PT to address these limitations. Plan of Care Interventions Electrical Stimulation,Gait Training,Hot Pack/Cold Pack,Intermittent Compression,Manual Therapy, Patient/Caregiver Educati,Therapeutic Activities, Therapeutic Exercise,Other Other Interventions kinesiotape procedures PT Services Indicated Yes Treatment Frequency and 2 times a week for 8 visits Duration These treatments will address the objective and functional deficits as define
--- NOTE | 2022-03-05 10:19 | PCPTNOTE ---
03/05/22: The patient cancelled all remaining visits due to increased pain after her first visit. Patient is discharged. Keri Cueto, PT
== END 2022-02-25 16:28 | disposition home or self-care (01) ==
LOC: CHSPT 09:19
PROVIDERS: PCP Family Medicine; Visit Provider Nurse Practitioner Family
DX: M22.2X1 Patellofemoral disorders, right knee (principal)
CPT/HCPCS: 97110; 97161

== ENCOUNTER 2022-05-14 14:36 | Outpatient (CLI) | payer MEDICARE, MEDICAID, SELFPAY ==
--- NOTE | ~2022-05-14 | XR_ITS ---
XR foot LT min 3V DATE: 05/14/2022 15:02 INDICATION: Left posterior heel pain for 3 to 4 months TECHNIQUE: Weightbearing AP, lateral and oblique views COMPARISON: 12/18/2020 left foot FINDINGS: Prominent posterior and mild plantar calcaneal enthesopathy is again noted, present on 11/23. Osteoarthritic arthritis at the first metatarsophalangeal joint. No fracture, dislocation, periosteal reaction or bone destruction is detected. IMPRESSION: Chronic prominent posterior and mild plantar calcaneal enthesopathy Reviewed, dictated and finalized at location A.
== END 2022-05-14 14:37 | disposition home or self-care (01) ==
LOC: CHSIMG 14:39
PROVIDERS: PCP Internal Medicine; Visit Provider Student in an Organized Health Care Education/Training Program
DX: M76.62 Achilles tendinitis, left leg (principal); M77.32 Calcaneal spur, left foot
CPT/HCPCS: 73630

== ENCOUNTER 2022-06-02 11:04 | Outpatient (CLI) | payer MEDICARE, MEDICAID, SELFPAY ==
[2022-06-02 11:28] LABS: Appearance Urine Clear (Clear); Bilirubin Urine Negative (Negative); Blood Urine Negative (Negative); Color Urine Light Yellow (Yellow); Glucose Urine UA Negative (Negative); Ketones Urine Negative (Negative); Leukocyte Esterase Ur 1+ (Negative); Nitrate Urine Negative (Negative); Protein Urine Negative (Negative); Specific Grav Ur <= 1.005 (1.010-1.020); Urobilinogen Urine 0.2 mg/dL (0.2-1.0)
[2022-06-02 11:33] LABS: Add Urine Microscopic? YES; RBC Urine None seen /hpf (0-2); Squamous Epithelial Cell Urine Rare /hpf (Few); WBC Urine 0-3 /hpf (0-3)
[2022-06-02 11:34] LABS: Bacteria Urine Rare /hpf
[2022-06-02 12:05] LABS: Anion Gap 11 mmol/L (8-16); Blood Urea Nitrogen 23 mg/dL (7-18); Calcium 9.8 mg/dL (8.5-10.1); Carbon Dioxide 28 mmol/L (21-32); Chloride 102 mmol/L (98-108); Estimated Glomerular Filt Rate 37; Glucose 144 mg/dL (70-99); Osmolality Calculated 298 mOsm/kg (285-295); Phosphorus 4.6 mg/dL (2.6-4.7); Potassium 4.3 mmol/L (3.5-5.1); Sodium 141 mmol/L (136-145)
== END 2022-06-02 11:05 | disposition home or self-care (01) ==
LOC: CHSLAB 11:08
PROVIDERS: PCP Internal Medicine
DX: N18.30 Chronic kidney disease, stage 3 unspecified (principal)
CPT/HCPCS: 36415; 80069; 81001

== ENCOUNTER 2022-10-12 09:25 | Outpatient (CLI) | payer MEDICARE, SELFPAY ==
[2022-10-12 09:47] LABS: Basophils Absolute Auto 0.02 K/mm3 (0.00-0.10); Basophils Percent Auto 0.4 % (0.0-1.0); Eosinophils Absolute Auto 0.09 K/mm3 (0.02-0.50); Eosinophils Percent Auto 1.6 % (1.0-6.0); Hematocrit 34.5 % (35.0-49.0); Hemoglobin 11.4 g/dL (12.0-15.0); Immature Granulocyte Absolute 0.03 K/mm3 (0.00-0.00); Immature Granulocyte Percent A 0.5 % (0.0-0.0); Lymphocytes Absolute Auto 1.47 K/mm3 (1.10-4.50); Mean Corpuscular Hemoglobin 31.8 pg (27.0-31.0); Mean Corpuscular Volume 96.1 fL (78.0-102.0); Mean Platelet Volume 8.3 fl (9.2-11.8); Monocytes Absolute Auto 0.52 K/mm3 (0.10-0.90); Monocytes Percent Auto 9.2 % (2.0-11.0); Neutrophils Absolute Auto 3.5 K/mm3 (1.7-7.2); Neutrophils Percent Auto 62.3 % (50.0-70.0); Platelet Count Result 250 K/mm3 (150-420); Red Blood Count 3.59 M/mm3 (4.20-5.40); Red Cell Distribution Width 14.1 % (11.6-14.4); White Blood Count 5.7 K/mm3 (4.8-10.8)
[2022-10-12 09:53] LABS: Creatinine Urine 59.53 mg/dL (40-278); Total Protein Urine Random 7.7 mg/dL (0.0-11.9); Ur Ttl Prot Creatinine Ratio 0.13 mg/mg (0-0.20)
[2022-10-12 10:12] LABS: Albumin Level 3.7 g/dL (3.4-5.0); Anion Gap 10 mmol/L (8-16); Blood Urea Nitrogen 24 mg/dL (7-18); Calcium 9.3 mg/dL (8.5-10.1); Carbon Dioxide 27 mmol/L (21-32); Chloride 103 mmol/L (98-108); Estimated Glomerular Filt Rate 39; Glucose 121 mg/dL (70-99); Osmolality Calculated 295 mOsm/kg (285-295); Phosphorus 3.5 mg/dL (2.6-4.7); Potassium 4.3 mmol/L (3.5-5.1); Sodium 140 mmol/L (136-145)
[2022-10-15 18:48] LABS: Parathyroid Intact 25 pg/mL (14-64)
== END 2022-10-12 09:26 | disposition home or self-care (01) ==
LOC: CHSLAB 09:32
PROVIDERS: PCP Internal Medicine; Visit Provider Internal Medicine Nephrology
DX: N18.30 Chronic kidney disease, stage 3 unspecified (principal)
CPT/HCPCS: 36415; 80069; 82570; 83970; 84156; 85025

== ENCOUNTER 2023-04-28 08:21 | Outpatient (CLI) | payer MEDICARE, SELFPAY ==
[2023-04-28 08:36] LABS: Hematocrit 35.3 % (35.0-49.0); Hemoglobin 11.9 g/dL (12.0-15.0); Mean Corpuscular HGB Conc 33.7 g/dL (32.0-36.0); Mean Corpuscular Hemoglobin 31.2 pg (27.0-31.0); Mean Corpuscular Volume 92.7 fL (78.0-102.0); Mean Platelet Volume 8.4 fl (9.2-11.8); Platelet Count Result 249 K/mm3 (150-420); Red Blood Count 3.81 M/mm3 (4.20-5.40); Red Cell Distribution Width 13.9 % (11.6-14.4); White Blood Count 6.1 K/mm3 (4.8-10.8)
[2023-04-28 08:48] LABS: Hemoglobin A1C 5.6 % (<5.7)
[2023-04-28 09:49] LABS: Alanine Aminotransferase 25 U/L (14-59); Albumin Level 3.6 g/dL (3.4-5.0); Alkaline Phosphatase 80 U/L (46-116); Anion Gap 9 mmol/L (8-16); Aspartate Amino Transferase 15 U/L (15-37); Bilirubin,Total 0.3 mg/dL (0.00-1.00); Blood Urea Nitrogen 24 mg/dL (7-18); Calcium 8.9 mg/dL (8.5-10.1); Carbon Dioxide 28 mmol/L (21-32); Chloride 104 mmol/L (98-108); Cholesterol 153 mg/dL (0-200); Estimated Glomerular Filt Rate 41; Glucose 103 mg/dL (70-99); HDL Direct 76 mg/dL (40-60); LDL Cholesterol Calculated 56 mg/dL (<130); Osmolality Calculated 296 mOsm/kg (285-295); Potassium 4.2 mmol/L (3.5-5.1); Sodium 141 mmol/L (136-145); Thyroid Stimulating Hormone 2.75 uIU/mL (0.36-3.74); Total Protein 6.6 g/dL (6.4-8.2); Triglycerides 103 mg/dL (0-150)
== END 2023-04-28 08:22 | disposition home or self-care (01) ==
LOC: CHSLAB 08:26
PROVIDERS: PCP Internal Medicine
DX: Z79.899 Other long term (current) drug therapy (principal)
CPT/HCPCS: 36415; 80053; 80061; 83036; 84443; 85027

== ENCOUNTER 2023-07-06 10:39 | Outpatient (CLI) | payer MEDICARE, SELFPAY ==
[2023-07-06 11:09] LABS: Hematocrit 34.9 % (35.0-49.0); Hemoglobin 11.5 g/dL (12.0-15.0); Mean Corpuscular Hemoglobin 30.3 pg (27.0-31.0); Mean Corpuscular Volume 92.1 fL (78.0-102.0); Mean Platelet Volume 8.4 fl (9.2-11.8); Platelet Count Result 228 K/mm3 (150-420); Red Blood Count 3.79 M/mm3 (4.20-5.40); Red Cell Distribution Width 14.4 % (11.6-14.4); White Blood Count 3.8 K/mm3 (4.8-10.8)
[2023-07-06 11:32] LABS: Band Neutrophils Percent 0 % (0-6); Eosinophils Absolute Manual 0.07 K/mm3 (0.02-0.50); Eosinophils Percent Manual 2 % (1-6); Lymphocytes Absolute Manual 1.33 K/mm3 (1.1-4.5); Lymphocytes Percent Manual 35 % (18-44); Monocytes Absolute Manual 0.45 K/mm3 (0.1-0.90); Monocytes Percent Manual 12 % (3-9); Neutrophils Absolute Manual 1.93 K/mm3 (1.7-7.2); Neutrophils Percent Manual 51 % (46-73); Platelet Estimate Adequate (Adequate); Total Cells Counted 100
[2023-07-06 12:36] LABS: Alanine Aminotransferase 28 U/L (14-59); Albumin Level 3.7 g/dL (3.4-5.0); Alkaline Phosphatase 73 U/L (46-116); Anion Gap 14 mmol/L (4-12); Aspartate Amino Transferase 22 U/L (15-37); Bilirubin,Total 0.7 mg/dL (0.00-1.00); Blood Urea Nitrogen 20 mg/dL (7-18); Calcium 9.1 mg/dL (8.5-10.1); Carbon Dioxide 24 mmol/L (21-32); Chloride 99 mmol/L (98-108); Estimated Glomerular Filt Rate 37; Ferritin 32 ng/mL (8-252); Glucose 112 mg/dL (70-99); Magnesium 1.8 mg/dL (1.8-2.4); Osmolality Calculated 287 mOsm/kg (285-295); Phosphorus 3.5 mg/dL (2.6-4.7); Sodium 137 mmol/L (136-145); Total Protein 6.8 g/dL (6.4-8.2); Uric Acid 6.1 mg/dL (2.6-6.0)
[2023-07-08 17:43] LABS: Parathyroid Intact 29 pg/mL (16-77)
[2023-07-09 03:49] LABS: Vitamin D 25 Hydroxy 44 ng/mL (30-100)
== END 2023-07-06 10:40 | disposition home or self-care (01) ==
LOC: CHSLAB 10:41
PROVIDERS: PCP Internal Medicine; Visit Provider Internal Medicine
DX: N18.30 Chronic kidney disease, stage 3 unspecified (principal)
CPT/HCPCS: 36415; 80053; 82306; 82728; 83735; 83970; 84100; 84550; 85025

== ENCOUNTER 2023-10-05 09:25 | Outpatient (CLI) | payer MEDICARE, SELFPAY ==
[2023-10-05 11:18] LABS: Cholesterol 178 mg/dL (0-200); HDL Direct 67 mg/dL (40-60); LDL Cholesterol Calculated 88 mg/dL (<130); Triglycerides 114 mg/dL (0-150)
== END 2023-10-05 09:26 | disposition home or self-care (01) ==
LOC: CHSLAB 09:29
PROVIDERS: PCP Internal Medicine
DX: E78.00 Pure hypercholesterolemia, unspecified (principal)
CPT/HCPCS: 36415; 80061

== ENCOUNTER 2023-10-25 10:21 | Emergency (ER) | payer MEDICARE, SELFPAY ==
--- NOTE | ~2023-10-25 | XR_ITS ---
Left ankle Technique: AP, oblique, and lateral views were obtained. Clinical History: Pain Findings: No acute fracture or dislocation is seen. Osseous alignment is anatomic. Ankle mortise and other visualized joint spaces are preserved. Soft tissues are otherwise unremarkable. Impression: Unremarkable left ankle. Reviewed, dictated and finalized at location . Impression: Unremarkable left ankle.
--- NOTE | ~2023-10-25 | XR_ITS ---
Right Knee Technique: AP, lateral, and oblique views were obtained. Clinical History: Pain Findings: No fracture or dislocation is seen. Osseous alignment is anatomic. Joint spaces are preserv ed without degenerative or erosive change. Soft tissues are unremarkable. No joint effusion is seen. Impression: Unremarkable right knee radiographs. Reviewed, dictated and finalized at location . Impression: Unremarkable right knee radiographs.
[2023-10-25 10:27] VITALS: BP 136/88; PULSE 95; RESP 16; TEMP 36.2; O2SAT 95
--- NOTE | 2023-10-25 11:42 | ED.UPPEXIN ---
HPI - Extremity Injury (Upper) General Chief Complaint: Extremity Injury, Upper Stated Complaint: right knee/left ankle pain Source: patient Mode of arrival: ambulatory Limitations: no limitations History of Present Illness HPI narrative: 62-year-old female with a history of CVA, cognitive impairment, PTSD, depression hypertension, dyslipidemia, COPD, CKD, recurrent falls -- right knee pain after a fall 2 weeks ago. The patient is ambulatory and able to bear weight. -- left ankle pain after a fall 3 days ago with bruising around left medial malleolus no head injury. No other injuries noted. Onset (ago): week(s) ( Two weeks ago) Other injuries: none Place: outdoors Relieving factors: immobilization Exacerbating factors: movement of extremity Context: fall Associated symptoms: denies other symptoms Related Data Home Medications Medication Instructions Recorded Confirmed aspirin 81 mg tablet,delayed 81 mg PO DAILY 05/01/20 11/11/21 release (Adult Aspirin Regimen) magnesium oxide 400 mg (241.3 mg 400 mg PO DAILY 05/01/20 11/11/21 magnesium) tablet lisinopril 5 mg tablet 5 mg PO DAILY 07/07/21 11/11/21 alprazolam 1 mg tablet (Xanax) 1 mg PO QHS 10/10/21 11/11/21 quetiapine 200 mg tablet (Seroquel) 200 mg PO QHS 10/10/21 11/11/21 Allergies Allergy/AdvReac Type Severity Reaction Status Date / Time No Known Allergies Allergy Verified 11/17/21 11:52 Review of Systems Review of Systems: All systems reviewed & are unremarkable except as noted in HPI and below Constitutional: Constitutional: Reports as per HPI and Reports no additional constitutional complaints Eyes: Eyes: Reports as per HPI and Reports no additional eye complaints ENT: Reports system reviewed and no additional complaints, except as documented and Reports as per HPI Cardiovascular: Cardiovascular: Reports as per HPI and Reports no additional cardiovascular complaints Respiratory: Respiratory: Reports as per HPI and Reports no additional respiratory complaints Gastrointestinal: Gastrointestinal: Reports as per HPI and Reports no additional gastrointestinal complaints Genitourinary: Genitourinary: Reports no additional female genitourinary complaints and Reports as per HPI Musculoskeletal: Comments: right knee pain left ankle pain with bruising Integumentary/Breasts: Skin/Breast: Reports system reviewed and no additional complaints, except as docu Comments: bruising around left medial malleolus Neurologic: Reports system reviewed and no additional complaints, except as documented and Reports as per HPI Psychiatric: Psychiatric: Reports no additional psychiatric complaints and Reports as per HPI Endocrine: Endocrine: Reports no additional endocrine complaints and Reports as per HPI Hematologic/Lymphatic: Hematologic/Lymphatic: Reports no additional hematologic/lymphatic complaints and Reports as per HPI Allergic/Immunologic: Allergic/Immunologic: Reports no additional allergic/immunologic complaints and Reports as per HPI [facility] Past Medical History Medical History CKD (chronic kidney disease) stage 3, GFR 30-59 ml/min COPD (chronic obstructive pulmonary disease) CVA (cerebral vascular accident) Depression Diverticulosis Dyslipidemia Hypertension Obesity PTSD (post-traumatic stress disorder) Upper respiratory infection Surgical History Surgical History H/O: hysterectomy History of colonoscopy 2017 History of tonsillectomy Family History Family History Mother Family history of bipolar disorder Family history of malignant neoplasm of bone, Onset Age: 51 Patient's mother is Social History Social History Smoking status: Never smoker Alcohol intake: current Living ar
--- NOTE | 2023-10-25 12:24 | PC.NURSE ---
xray completed at this time
[2023-10-25 13:05] VITALS: BP 139/81; PULSE 75; RESP 18; TEMP 36.1; O2SAT 94
== END 2023-10-25 13:31 | disposition home or self-care (01) ==
PROVIDERS: Emergency Provider Internal Medicine Critical Care Medicine; PCP Internal Medicine
DX: S93.402A Sprain of unspecified ligament of left ankle, initial encounter (principal); M25.561 Pain in right knee; J44.9 Chronic obstructive pulmonary disease, unspecified; I12.9 Hypertensive chronic kidney disease with stage 1 through stage 4 chronic kidney disease, or unspecified chronic kidney disease; N18.30 Chronic kidney disease, stage 3 unspecified; W19.XXXA Unspecified fall, initial encounter
CPT/HCPCS: 29515; 73562; 73610; 99284; L4350

== ENCOUNTER 2023-11-15 09:46 | Outpatient (RCR) | payer MEDICARE, SELFPAY ==
--- NOTE | 2023-11-15 11:06 | PTOPEVAL1 ---
Assessment and note entered by [facility] Evaluation Information Assessment Status Evaluation Diagnosis positional vertigo ICD-10 Condition Codes (PT) BPPV H81.12 Onset 11/14/22 Subjective Information Pt. report that she has been experiencing dizziness for about 1 year. She reports that she underwent heart surgery to close a hole that had developed. She reports that her dizziness is daily and feels like the room is always spinning. She reports that she has not underwent any recent testing in relationship to her dizziness. She reports that she sees a neurologist twice and year , and has hx of mini strokes. She states that she has fallen twice this year due to her dizziness. She reports that her last fall was a couple weeks ago. She reports that she avoids bending forward for house work because she is fearful she will pass out. She states that she does not use an AD. She reports that she is able to drive despite her dizziness. She states that she never experiences dizziness while driving. She does take BP medication, but her BP has been normal and she does not note any particular time of the day that dizziness is more prevalent. She reports that her goal is to get her dizziness under control. Reported Pain Level Pain Score 0: Self Report Assessment PT Clinical Summary Pt. enters the clinic with a diagnosis of positional vertigo. She presents with no indication of BPPV on this date, however note deficits in balance. Pt. does have hx of TIA's according to subjective reports. At this time she presents with high fall risk and slight l.e. weakness, as well as impaired gait. Recommend continued therapy in order to address these areas to allow the pt. to achieve improved safety with ADL performance. Plan of Care Interventions Gait Training,Neuro Re-education,Patient/Caregiver Educati,Therapeutic Activities,Therapeutic Exercise PT Services Indicated Yes Treatment Frequency and 2x/week x 10 visits Duration These treatments will address the objective and functional deficits as defined above. The patient will be advanced safely and appropriately in order for the patient to progress towards his/her prior level of function. Additional exercises will be introduced and as well as a comprehensive home exercise program upon discharge, if
--- NOTE | 2023-11-15 11:09 | OPREHPOC ---
Outpatient Therapy Plan of Care This is a Multidisciplinary Plan of Care that may contain components documented by all disciplines (PT, OT, and ST.) PT Problem 1 PT Problem #1 Knowledge Deficit PT Goal 1 Goal / Goal Update Independent with a HEP focusing on l.e. strength. Target Visit 2 PT Problem 2 PT Problem #2 Impaired Balance PT Goal 1 Goal / Goal Update Pt. will increase her Tinetti score to 24 or greater Pt. will be able to stand on airex foam for 2 minutes without LOB Pt. will be able to safely lift object off the floor for 5 reps Target Visit 10 PT Problem 3 PT Problem #3 Impaired Strength PT Goal 1 Goal / Goal Update Pt. will present with 5/5 proximal l.e. strength in order to improve stability in standing.
--- NOTE | 2023-12-01 14:01 | PCPTNOTE ---
Mrs. Romano attended a total of 5 treatment sessions. She contacted the clinic on 12/01/23 stating that she is no longer having dizziness and is feeling much better in regards to balance. She has been experiencing ankle pain the last several treatments and stated that she would talk with her doctor regarding the pain. She will be discharged from our care at this time. Thank you for the referral of this patient. Haseeb Cox, MPT
== END 2023-11-29 15:15 | disposition home or self-care (01) ==
LOC: CHSPT 09:46
PROVIDERS: Visit Provider Internal Medicine
DX: H81.12 Benign paroxysmal vertigo, left ear (principal)
CPT/HCPCS: 97110; 97112; 97161

== ENCOUNTER 2024-04-11 10:44 | Outpatient (CLI) | payer MEDICARE, SELFPAY ==
--- OUTSIDE RECORDS SUMMARY | 2024-04-11 11:01 | XMS_ITS | Encounter Summary ---
Author Organization [facility] Address [address] [place] [address] Care Team Providers Care Senior Inspector Name Role Phone Jarrett Ang MD Unavailable Unavailabl e Tyrese Farias MD Primary Care Provider [phone] Manas Devlin MD Unavailable [phone] Radha Griffiths [facility]- Unavailable [phone] Encounter Details Date Type Department Care Team (Late Contact Info) Description 04/14/2023 Hospital Orders Only [facility]ceiving [facility] Pre/Post [address] [place] [address] Marlon Mejia MD [address], [place] [id number] Social History Tobacco Use Types Packs/Day Years Used Date Smoking Tobacco: Former Cigarettes Q uit: 2008 Smokeless Tobacco: Never Alcohol Use Standard Drinks/Week Comments Yes 0 (1 standard drink = 0.6 oz pur e alcohol) 5 per month Comments No Sex and Gender Information Value Date Recorded Sex Assigned at Not on file Legal Sex Female 4:32 PM CDT Gender Identity Not on file Sexual Orientation Not on file documented as of this encounter Plan of Treatment Upcoming Encounters Date Type Department Care Team (Late Contact Info) Description 04/17/2024 2:30 PM HAND WASHER Office Visit [facility] [address] [place] [id number] Cathy Christian MD [address] [place] [address] 10/11/2024 10:30 AM CDT [facility] [address] [place] [id number] Manas Devlin MD [address], [place] [id number] documented as of this encounter Visit Diagnoses Not on filedocumented in this encounter Care Teams Senior Inspector Relationship Specialty Start Date End Date Tyrese Farais MD [address] [place] [address] PCP - General INTERNAL MEDICINE 04/13/22 Jarrett Ang MD Consulting Physician CARDIOVASCULAR DISEASE 07/07/1910/04 Manas Devlin MD [address] [place], [place] [address] INTERVENTIONAL CARDIOLOGY 10/06/23 Radha Griffiths ANP- [facility] [place] [address] Nurse Practitioner NURSE PRACTITIONER ADULT HEALTH 10/06/23 documented as of this encounter
--- OUTSIDE RECORDS SUMMARY | 2024-04-11 11:01 | XMS_ITS | Continuity of Care Document ---
Author Organization [facility] Address [address] [address] [place] [address] Phone Care Team Providers Care Commercial Driver'S License Driver Name Role Phone Daquan Swanson MD Unavailable Unavailable Allergies, Adverse Reactions, Alerts Substance Reaction Status Criticality No Known Allergies Active No Inform ation Medications Medication Instructions Dosage Effective Dates (start - stop) Status Comments Topamax 25 mg tablet take 1 Tablet by or al route every evening 25 MG - Active Procedures Procedure Date OFFICE/OUTPATIENT VISIT, [facility] Advance Directives Directive Yes / No Effective Date File Name No Information Encounters Encounter Description Practice Location Reason(s) For Visit Diagnoses Date Provider Providers Copied on Encounter OFFICE/OUTPA TIENT VISIT, [facility], [address] [place], [id number], tel:[phone] [facility] headache1 (chief complaint) GERD1 (chief complaint) insomnia1 (chief complaint) HeadacheOther subjective visual disturbancesGERD w/o esophagitisEssentia l (primary) hypertension [address] [facility] [place], [id number] , [place]. tel:[phone] Referring Provider: Daquan Swanson, [address] [facility] [place], [id number]. tel:[phone] Family History Family Member Type Diagnosis Age At Onset Mother Problem (finding) of 50s bone CA Brother Problem (finding) Coronary artery disease 50 Father Problem (finding) killed by accident Payers Payer name Insurance type Covered green party ID Authoriza tion(s) No Information Social History Type Description Quantity Date Captured Comments Alcohol Use Details No Caffeine Use Details Unknown Tobacco Use Status Never smoked tobacco 2015 Smoking Status Never smoker Non-Smoking Tobacco Use Details : No Details Available : No Details Available Sex Female Vital Signs Date / Time: Height Weight BMI Pulse Rate Blood Pressure Temperature Respiratory Rate Body Surface Area Head Circumference BMI percentile Pulse Ox Inhaled Ox 11:19 AM 63.00 in 149.00 lbs 26.3 9 kg/m eter (2) 55 /min 148/80 mm[Hg] 98.1 F 18 /min Chief Complaint And Reason For Visit From encounter dated '12/11/2015 10:15'. headache1 (chief complaint). Description: Pt c/o headache for two months. Pt denies any head injury. Pt has history of migraine and used to take imitirex. Pt states that she has dull frontal headachewith nausea. Pt denies any photophoib. Pt denies any vision problem. Pt has headache constantly. Pthas 6/10 headache. Pt has been waking up at night due to headache. Pt went to previous PCP and was given abx but did not help. Pt was treated for presumed sinus infection. Pt states that her vision is also getting worse lately. Pt staes that thing seems slightly blurred when she watch TV GERD1 (chief complaint). Description: Pt has GERD. Pt takes omeprazole daily. Pt has daily refluex.Pt had EGD last week and was told ok per patient. Pt denies any nausea, vomiting. insomnia1 (chief complaint). Description: Pt has anxiety and depression and bipolar and insomnia. Pt taeks xanax trazodone trileptal and also prozac. Pt denies any suicidal or homicdial thought. Pt denies any crying spells Plan Of Treatment Date Type Action Status Referral Ordered: MRI BRAIN W/O & W/DYE ordered History Of Present Illness Encounter Date Complaint History Of Prese nt Illness headache1 Pt c/o headache for two months. Pt denies any head injury. Pt has history of migraine and used to take imitirex. Pt states that she has dull frontal headache with nausea. Pt denies any photophoib. Pt denies any vision problem. Pt has headache constantly. Pt has 6/10 headache. Pt has been waking up at night due to headache. Pt went to previous PCP and was given abx but did not help. Pt was treated for presumed sinus infection. Pt states that her vision is also getting worse lately. Pt staes that thing seems slightly blurred when she watch TV GERD1 Pt has GERD. Pt takes omeprazole daily. Pt has daily refluex. Pt had EGD last week and was told ok per patient. Pt denies any nausea, vomiting. insomnia1 Pt has anxiety a nd depression and bipolar and insomnia. Pt taeks xanax trazodone trileptal and also prozac. Pt denies any suicidal or homicdial thought. Pt denies any crying spells Instructions Date Instruction Additional Infor mation Prescribed Activity and Exercise Education Related to Dietary Surveillance and Counseling Prescribed Diet Educ ation/Lifestyle Education Regarding Diet Related to Dietary Surveillance and Counseling Assessments Type Assessment Date assessment Headache assessment Other subjective visual disturba nces assessment GERD w/o esophagitis assessment Essential (primary) hypertension Mental Status Date Cognitive Assessment Orientation - Carbon ed to time, place, person, situation.
--- OUTSIDE RECORDS SUMMARY | 2024-04-11 11:01 | XMS_ITS | Clinical Summary ---
Author Organization [facility] Address [address] [place] [address] Phone Care Team Providers Care Pressurised Container Filler Name Role Phone Indra Li MD Primary Care Provider [phone] Allergies No known active allergies Medications Medication Sig Dispensed Refills Start Date End Date Status ALPRAZolam (XANAX) 1 MG tablet Take 1 mg by mouth 3 (three) times a day 1 10/30/2018 Active sertraline (ZOLOFT) 100 MG tablet Take 100 mg by mouth 1 (one) time each day 2 11/13/2018 Active omeprazole OTC (PriLOSEC OTC) 20 MG EC tablet Take 20 mg by mouth 1 (one) time each day Active zolpidem (AMBIEN) 10 MG tablet TAKE 1 TABLET BY MOUTH ONCE DAILY AT BEDTIME NEEDED FOR INSOMNIA 0 12/09/2018 Active QUEtiapine (SEROquel) 300 MG tablet Take 300 mg by mouth every night 1 01/03/2019 Active magnesium oxide (MAG-OX) 400 (241.3 Mg) MG tablet Take 400 mg by mouth 1 (one) time each day 08/01/2019 Active pantoprazole (PROTONIX) 40 MG EC tablet Take 40 mg by mouth 1 (one) time each day 08/08/2019 Active amitriptyline (ELAVIL) 10 MG tablet Take 10 mg by mouth every night 11/16/2019 Active lactulose (CHRONULAC) 10 GM/15ML solution TAKE 20 GM (30 ML) BY MOUTH DAILY 11/07/2019 Active lisinopril (PRINIVIL) 5 MG tablet Take 5 mg by mouth 1 (one) time each day 04/16/2020 Active lovastatin (MEVACOR) 10 MG tablet Take 10 mg by mouth 1 (one) time each day 05/01/2020 Active Active Problems Problem Noted Date Diagnosed Date FH: premature coronary heart disease 01/16/2020 Essential hypertension 08/28/2019 Increased lipid 08/28/2019 Palpitations 08/28/2019 Moderate major depression, single episode 2018 Bipolar disorder 02/11/2017 Overview (11/30/2018): Last Assessment & Plan: This is a chronic problem for the patient. She will get treatment per Psychiatry as an inpatient. Current drinker 02/11/2017 Overview (11/30/2018): Last Assessment & Plan: Will keep leave Librium on board and thiamine to control symptoms. Suicide attempt 02/11/2017 Overview (11/30/2018): Last Assessment & Plan: Patient had prior suicide attempts due to her bipolar disease and depression. Before coming to hospital she took 15 trazodone and handful of tramadol. She also had a suicidal note that she wants to harm herself. Dr. José evaluated her and she is going to inpatient psych unit at [facility]. Immunizations Name Administration Dates Next Due Influenza, Injectable, Quadrivalent 11/20/2019 Pneumococcal Polysaccharide 05/01/2014 Family History Medical History Relation Comments Coronary artery disease Brother Hypertension Brother Bone cancer Mother Coronary artery disease Mother Relation Status Comments Brother Mother Social History Tobacco Use Types Packs/Day Years Used Date Smoking Tobacco: Former Smokeless Tobacco: Never Alcohol Use Standard Drinks/Week Comments Yes 5 (1 standard drink = 0.6 oz pur e alcohol) Sex and Gender Information Value Date Recorded Sex Assigned at Not on file Gender Identity Not on file Sexual Orientation Not on file Last Filed Vital Signs Vital Sign Reading Time Taken Comments Blood Pressure 128/70 12/06/2019 11:21 AM CDT Pulse - - Temperature 36.8 C (98.2 F) 12/06/2019 11:21 AM CDT Respiratory Rate 18 12/06/2019 11:21 AM CDT Oxygen Saturation - - Inhaled Oxygen Concentration - - Weight 74.8 kg (165 lb) 12/06/2019 11:21 AM CDT Height 162.6 cm (5' 4 ) 12/06/2019 11:21 AM CDT Body Mass Index 28.32 12/06/2019 11:21 AM CDT Plan of Treatment Health Maintenance Due Date Last Done Comments Influenza Vaccine (#1) 2023 Care Teams Pressurised Container Filler Relationship Specialty Start Date End Date Indra Li MD [address] [facility] [address] [place] [address] PCP - General Family Medicine 06/25/20
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
--- OUTSIDE RECORDS SUMMARY | 2024-04-11 11:01 | XMS_ITS | Patient Health Record ---
Author Organization [facility] Address [address] [place], [place] [id number] Care Team Providers Care Soap Boiler Name Role Phone ALLIE Evangelista Unavailable [phone] Indra Li Unavailable Unavailable Allergies No Known Allergies Reason For Referral No Information Medications Medication SIG (Take, Route, Frequency, Duration) Notes Start Date End Date Status Medrol Dosepak ORAL Medrol DosepakOr iginal MedicationMedrol Dosepak *Reorder from [employer] for eRx and Interaction Alerts* 12/23/2020 Active Plan Of Treatment No Information Insurance Providers Payer Name Payer Address Payer Phone Subscriber Number Group Number Insured Name Patient Relationship to Insured Coverage Start Date Coverage End Date [employer] [address] [place] [address] [phone] [id number] VANE RAMIREZ Self - patient is the insured
--- OUTSIDE RECORDS SUMMARY | 2024-04-11 11:01 | XMS_ITS | Encounter Summary ---
Author Organization [facility] Address [address] [place] [address] Care Team Providers Care Curtain Cutter Hand Name Role Phone Jarrett Ang MD Unavailable Unavailabl e Tyrese Farias MD Primary Care Provider [phone] Manas Devlin MD Unavailable [phone] Radha Griffiths [facility]- Unavailable +- Encounter Details Date Type Department Care Team (Late st Contact Info) Description 06/03/2023 Hospital Follow-up Call [facility] [address] [place] [address] Jaclyn Reese RN Social History Tobacco Use Types Packs/Day Years Used Date Smoking Tobacco: Former Cigarettes Q uit: 2007 Smokeless Tobacco: Never Alcohol Use Standard Drinks/Week Comments Never 0 (1 standard drink = 0.6 oz pur e alcohol) 5 per month [facility] Utilities Answer Date Recorded In the past 12 months has [facility] [employer], gas, oil, or water [employer] threatened to shut off services in your [...] any time in the past 12 m [facility], were you homeless or living in a correction (including now)? No 06/01/2023 Comments No Sex and Gender Information Value Date Recorded Sex Assigned at Not on file Legal Sex Female 4:32 PM CDT Gender Identity Not on file Sexual Orientation Not on file documented as of this encounter Functional Status * Are you deaf or do you have serious difficulty hearing Answer Date of Assessment Author Status No 06/01/2023 12:58 PM CDT Alie Moreno RN Active * Are you blind or do you have serious difficulty seeing, even when wearing glasses? Answer Date of Assessment Author Status No 06/01/2023 12:58 PM CDT Alie Moreno RN Active * Do you have serious difficulty walking or climbing stairs? Answer Date of Assessment Author Status No 06/01/2023 12:58 PM CDT Alie Moerno RN Active * Do you have difficulty dressing or bathing? Answer Date of Assessment Author Status No 06/01/2023 12:58 PM CDT Alie Moreno RN Active * Because of a physical, mental, or emotional condition, do you have difficulty doing errands alone such as visiting a doctor's office or shopping? Answer Date of Assessment Author Status No 06/01/2023 12:58 PM CDT Alie Moreno RN Active documented as of this encounter Mental Status * Because of a physical, mental, or emotional condition, do you have serious difficulty concentrating, remembering, or making decisions? Answer Entry Date Author Status No 06/01/2023 12:58 PM CDT Alie Moreno RN Active documented in this encounter Plan of Treatment Upcoming Encounters Date Type Department Care Team (Late st Contact Info) Description 04/17/2024 2:30 PM RESEARCH ASSISTANT Office Visit [facility] [address] [place] [address] Cathy Christian MD [address] [place] [address] 10/11/2024 10:30 AM CDT Office Visit [facility] [address] [place] [phone] Manas Devlin MD [address] [place] [address] documented as of this encounter Visit Diagnoses Not on filedocumented in this encounter Care Teams Curtain Cutter Hand Relationship Specialty Start Date End Date Tyrese Farias MD [address] [place] [phone] PCP - General INTERNAL MEDICINE 04/13/22 Jarrett Ang MD Consulting Physician CARDIOVASCULAR DISEASE 07/07/1910/04 Manas Devlin MD [address] [place] [address] INTERVENTIONAL CARDIOLOGY 10/06/23 Radha Griffiths [facility]- [address] [place], [place] [phone] Nurse Practitioner NURSE PRACTITIONER ADULT HEALTH 10/06/23 documented as of this encounter
--- OUTSIDE RECORDS SUMMARY | 2024-04-11 11:01 | XMS_ITS | Data Portability ---
Author Organization [facility] BILLYErika De La Cruz Address [address] [facility] [place] [address] Care Team Providers Care Lode [employer] Name Role Phone ELISEO DAFNE Primary Care Provider Assessment No assessment recorded. Plan of Treatment Reminders Order Date Submit Date Provider Last Modified By Organization Details Last Modified Time Details Appointments None record ed. Lab urinal ysis, dipsti ck 2021 022 DAVON In-Office Order, Internal Use Only DO Not Attach Compendium DO Not Attach Compendium, Do Not Delete/merge, [id number] 12:32:14 CBC 2021 022 DAVON [facility], [address] [facility] [address], [place], [address], 08:18:20 CMP, serum or plasma 2021 022 DAVON [facility], [address] [facility], [facility], [place], [address], 2 08:18:18 lipid panel, serum 2021 022 DAVON [facility], [address] [facility], [facility], [place], [address], 2 08:18:18 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 Surgeries None record ed. Imaging x-ray, wrist, 3 views - right wrist 2015 016 DAVON Not available 06:26:12 Medication Orders cephal exin 500 mg capsul e 2015 016 [facility] [place], [address], 12:12:27 diclof enac sodium 75 mg tablet ,delay ed releas e [facility] [address] [place], [address], 11:49:21 Keflex 500 mg capsul e 2015 016 [facility] [address], [address] [place], [address], 12:12:27 Patient TargetsNo targets recorded. Patient Instructions Encounter Date Encounter Id Patient Instructions Last Modified By Organization Details Last Modified Time 03/06/2015 [id number] upper respirator y infection (cold): care instructions jweichert Not available 03/06/2015 15:25:21 03/14/2015 [id number] upper respirator y infection (cold): care instructions jweichert Not available 03/14/2015 10:48:46 anemia: care instructions jweichert Not available 03/14/2015 10:48:46 cont current treatments jnanney Not available 03/14/2015 10:48:29 11/19/2015 [id number] Acute Sinusitis: Care Instructions Not available 11/19/2015 17:42:10 gastroesophageal reflux disease (GERD): care instructions Not available 11/19/2015 17:42:10 11/19/2021 [id number] abdominal pain: care instructions jnanney Not available 11/19/2021 12:18:09 12/19/2021 [id number] A healthy lifest yle: care instructions jnanney Not available 12/19/2021 12:24:33 A healthy lifest yle: care instructions jnanney Not available 12/19/2021 12:24:16 instructed to contact her psyche vs depression jnanney Not available 12/19/2021 12:27:14 Reason for Referral has had bleeding ulcer in pa st Referring Physician: Dafne Vidal, Family Medicine, Encounter Date: 11/19/2015 Results Created Date Observation Date Name Description Value Unit Range Abnormal Flag Note LastModifiedBy Organization Detail LastModifiedTime 11/20/19 22 11/20/2021 LIPID PANEL cholesterol, total 123 mg/dL 100-19 9 Not Available [facility] ([facility]) [address] [place], [address], 11/20/2021 08:18:18 11/20/19 22 11/20/2021 LIPID PANEL triglyceride s 151 mg/dL 0-149 above high normal Not Available [facility] ([facility]) [address] [place], [address], 11/20/2021 08:18:18 11/20/19 22 11/20/2021 LIPID PANEL HDL cholesterol 53 mg/dL >39 Not Available [facility] ([facility] [address] [place], [address], 11/20/2021 08:18:18 11/20/19 22 11/20/2021 LIPID PANEL VLDL cholesterol aron 25 mg/dL 5-40 Not Available [facility] ([facility]) [address] [place], [address], 11/20/2021 08:18:18 11/20/19 22 11/20/2021 LIPID PANEL LDL chol calc ([facility]) 45 mg/dL 0-99 Not Available [facility] ([facility]) [address] [place], [address], 11/20/2021 08:18:18 11/20/19 22 11/20/2021 COMP. METAB OLIC PANEL (14) glucose 102 mg/dL 70-99 above high normal Ple ase note refer ence inter yaquelin robbins e Not Available [facility] ([facility]) [address] [place], [address], 11/20/2021 08:18:18 11/20/19 22 11/20/2021 COMP. METAB OLIC PANEL (14) BUN 19 mg/dL 8-27 Not Available [facility] ([facility]) [address] [facility] [place], [address], 11/20/2021 08:18:18 11/20/19 22 11/20/2021 COMP. METAB OLIC PANEL (14) creatinine 1.51 mg/dL 0.57-1 .00 above high normal Not Available [facility] ([facility]) [address] [facility] [place], [address], 11/20/2021 08:18:18 11/20/19 22 11/20/2021 COMP. METAB OLIC PANEL (14) eGFR 39 mL/mi n/1.7 3 >59 below low normal Not Available [facility] ([facility]) [address] [facility] [place], [address], 11/20/2021 08:18:18 11/20/19 22 11/20/2021 COMP. METAB OLIC PANEL (14) BUN/creatini ne ratio 13 12-28 Not Available [facility] ([facility]) [address] [facility] [place], [address], 11/20/2021 08:18:18 11/20/19 22 11/20/2021 COMP. METAB OLIC PANEL (14) sodium 138 mmol/ L 134-14 4 Not Available [facility] ([facility]) [address] [place], [address], 11/20/2021 08:18:18 11/20/19 22 11/20/2021 COMP. METAB OLIC PANEL (14) potassium 4.6 mmol/ L 3.5-5. 2 Not Available [facility] ([facility]) [address] [facility] [place], [address], 11/20/2021 08:18:18 11/20/19 22 11/20/2021 COMP. METAB OLIC PANEL (14) chloride 101 mmol/ L 96-106 Not Available [facility] ([facility]) [address] [place], [address], 11/20/2021 08:18:18 11/20/19 22 11/20/2021 COMP. METAB OLIC PANEL (14) carbon dioxide, total 20 mmol/ L 20-29 Not Available [facility] ([facility]) [address] [place], [address], 11/20/2021 08:18:18 11/20/19 22 11/20/2021 COMP. METAB OLIC PANEL (14) calcium 9.8 mg/dL 8.7-10 .3 Not Available [facility] ([facility]) [address] [place], [address], 11/20/2021 08:18:18 11/20/19 22 11/20/2021 COMP. METAB OLIC PANEL (14) protein, total 7.2 g/dL 6.0-8. 5 Not Available [facility] ([facility] [address] [place], [address], 11/20/2021 08:18:18 11/20/19 22 11/20/2021 COMP. METAB OLIC PANEL (14) albumin 4.4 g/dL 3.8-4. 8 Not Available [facility] ([facility]) [address] [place], [address], 11/20/2021 08:18:18 11/20/19 22 11/20/2021 COMP. METAB OLIC PANEL (14) globulin, total 2.8 g/dL 1.5-4. 5 Not Available [facility] ([facility] [address] [place], [address], 11/20/2021 08:18:18 11/20/19 22 11/20/2021 COMP. METAB OLIC PANEL (14) A/G ratio 1.6 1.2-2. 2 Not Available [facility] ([facility]) [address], [place], [address], 11/20/2021 08:18:18 11/20/19 22 11/20/2021 COMP. METAB OLIC PANEL (14) bilirubin, total 0.5 mg/dL 0.0-1. 2 Not Available [facility] ([facility]) [address] [place], [address], 11/20/2021 08:18:18 11/20/19 22 11/20/2021 COMP. METAB OLIC PANEL (14) alkaline phosphatase 79 IU/L 44-121 Not Available [facility] ([facility]) [address], [place], [address], 11/20/2021 08:18:18 11/20/19 22 11/20/2021 COMP. METAB OLIC PANEL (14) AST (SGOT) 16 IU/L 0-40 Not Available [facility] ([facility]) [address] [facility], [place], [address], 11/20/2021 08:18:18 11/20/19 22 11/20/2021 COMP. METAB OLIC PANEL (14) ALT (SGPT) 21 IU/L 0-32 Not Available [facility] ([facility]) [address] [place], [address], 11/20/2021 08:18:18 11/20/19 22 11/20/2021 CBC, PLATE LET, NO DIFFE RENTI AL WBC 10.5 x10e3 /uL 3.4-10 .8 Not Available [facility] ([facility]) [address] [place], [address], 11/20/2021 08:18:20 11/20/19 22 11/20/2021 CBC, PLATE LET, NO DIFFE RENTI AL RBC 3.77 x10e6 /uL 3.77-5 .28 Not Available [facility] ([facility]) [address] [facility], [place], [address], 11/20/2021 08:18:20 11/20/1911/20/2021 CBC, PLATE LET, NO DIFFE RENTI AL hemoglobin 11.7 g/dL 11.1-1 5.9 Not Available [facility] ([facility]) [address] [place], [address], 11/20/2021 08:18:20 11/20/19 22 11/20/2021 CBC, PLATE LET, NO DIFFE RENTI AL hematocrit 33.6 % 34.0-4 6.6 below low normal Not Available [facility] ([facility]) [address] [facility], [place], [address], 11/20/2021 08:18:20 11/20/19 22 11/20/2021 CBC, PLATE LET, NO DIFFE RENTI AL MCV 89 fL 79-97 Not Available [facility] ([facility]) [address] [facility], [place], [address], 11/20/2021 08:18:20 11/20/1911/20/2021 CBC, PLATE LET, NO DIFFE RENTI AL MCH 31.0 pg 26.6-3 3.0 Not Available [facility] ([facility]) [address] [place], [address], 11/20/2021 08:18:20 11/20/1911/20/2021 CBC, PLATE LET, NO DIFFE RENTI AL MCHC 34.8 g/dL 31.5-3 5.7 Not Available [facility] ([facility]) [address] [place], [address], 11/20/2021 08:18:20 11/20/19 22 11/20/2021 CBC, PLATE LET, NO DIFFE RENTI AL RDW 13.8 % 11.7-1 5.4 Not Available [facility] ([facility]) [address] [place], [address], 11/20/2021 08:18:20 11/20/19 22 11/20/2021 CBC, PLATE LET, NO DIFFE RENTI AL platelets 326 x10e3 /uL 150-45 0 Not Available [facility] ([facility]) [address] [facility], [place], [address], 11/20/2021 08:18:20 11/20/19 22 11/20/2021 CARDI OVASC ULAR REPOR T interpretati on Note Suppl ement al repor t is avail able. Not Available [facility] ([facility]) [address] [facility], [place], [address], 11/20/2021 08:18:19 11/20/19 22 11/20/2021 CARDI OVASC ULAR REPOR T pdf Not applic able Not Available [facility] ([facility]) [address] [facility], [place], [address], 11/20/2021 08:18:19 11/20/19 22 11/20/2021 LITHO LINK CKD PROGR AM interpretati on Note Suppl ement al repor t is avail able. Not Available [facility] ([facility]) [address] [facility], [place], [address], 11/20/2021 08:18:19 11/20/19 22 11/20/2021 LITHO LINK CKD PROGR AM pdf . Not Available [facility] ([facility]) [address] [facility], [place], [address], 11/20/2021 08:18:19 11/20/19 22 11/19/2021 urina lysis , dipst ick Leukocytes Small Not Available In-Offi ce Order Internal Use Only DO Not Attach Compendium DO Not Attach Compendium, Do Not Delete/merge, [id number] 11/19/2021 12:17:35 11/20/19 22 11/19/2021 urina lysis , dipst ick Nitrite negati ve Not Available In-Office Order Internal Use Only DO Not Attach Compendium DO Not Attach Compendium, Do Not Delete/merge, 11/19/2021 12:17:35 11/20/19 22 11/19/2021 urina lysis , dipst ick Urobilinogen .2 Not Available In-Of fice Order Internal Use Only DO Not Attach Compendium DO Not Attach Compendium, Do Not Delete/merge, 11/19/2021 12:17:35 11/20/19 22 11/19/2021 urina lysis , dipst ick Protein Negati ve Not Available In-Office Order Internal Use Only DO Not Attach Compendium DO Not Attach Compendium, Do Not Delete/merge, 11/19/2021 12:17:11/20/19 22 11/19/2021 urina lysis , dipst ick pH 6.0 Not Available In-Office Order Internal Use Only DO Not Attach Compendium DO Not Attach Compendium, Do Not Delete/merge, 11/19/2021 12:17:35 11/20/19 22 11/19/2021 urina lysis , dipst ick Blood Negati ve Not Available In-Office Order Internal Use Only DO Not Attach Compendium DO Not Attach Compendium, Do Not Delete/merge, 11/19/2021 12:17:35 11/20/19 22 11/19/2021 urina lysis , dipst ick Specific Compton 1.015 Not Available In-Off ice Order Internal Use Only DO Not Attach Compendium DO Not Attach Compendium, Do Not Delete/merge, 11/19/2021 12:17:35 11/20/19 22 11/19/2021 urina lysis , dipst ick Ketone Negati ve Not Available In-Office Order Internal Use Only DO Not Attach Compendium DO Not Attach Compendium, Do Not Delete/merge, 11/19/2021 12:17:35 11/20/19 22 11/19/2021 urina lysis , dipst ick Bilirubin Negati ve Not Available In-Office Order Internal Use Only DO Not Attach Compendium DO Not Attach Compendium, Do Not Delete/merge, 11/19/2021 12:17:35 11/20/19 22 11/19/2021 urina lysis , dipst ick Glucose Negati ve Not Available In-Office Order Internal Use Only DO Not Attach Compendium DO Not Attach Compendium, Do Not Delete/merge, [id number] 11/19/2021 12:17:35 11/20/19 22 11/19/2021 urina lysis , dipst ick Appearance Clear Not Available In-Offi ce Order Internal Use Only DO Not Attach Compendium DO Not Attach Compendium, Do Not Delete/merge, [id number] 11/19/2021 12:17:35 11/20/19 22 11/19/2021 urina lysis , dipst ick Color Yellow Not Available In-Office Order Internal Use Only DO Not Attach Compendium DO Not Attach Compendium, Do Not Delete/merge, [id number] 11/19/2021 12:17:35 02/09/20 15 01/28/2015 susan r monit or No observ ation record ed. jnanney Not Available 2014 13:29:15 03/06/19 16 03/06/2015 x-ray , wrist , 3 views No observ ation record ed. jweichert [address], [address], 03/07/2015 11:30:30 11/27/19 22 11/26/2021 US, abdom en + pelvi s No observ [facility] [address] [place], [address], 11/28/2021 10:50:41 11/27/19 22 11/26/2021 US, abdom en + pelvi s No observ ation record ed. [facility] [address] [place], [address], 11/28/2021 10:50:42 Result Notes None recorded. Problems Name Problem SNOMED Code Status Onset Date Resolution Date Notes Provider Name and Address Organization Details Recorded Time Pain of breast 79581143 Active Sarah Worley MA [facility], [place] - [facility] 6 16:19:03 Upper respiratory infection 04525973 Active Sarah Redmondjosh JACQUELINE null, [place] - [facility] 6 16:19:03 Chronic renal impairment Active Sarahtong Redmondjosh [place], [place] - [facility] 6 16:19:03 Heart irregular Active Sarah RedmondrosaJACQUELINE steel null, [place] - [facility] 6 16:19:03 Anemia 706665449 Active Sarah Redmondjosh J[place], [place] - [facility] 6 16:19:03 Wrist joint pain 251587018 Active Sarah Redmondjosh [place], [place] - [facility] 6 16:19:03 Gastroesophage al reflux disease 768673280 Active Dafne Vidal PA-C Attn: Mariannein g,[address] [place], [address], [facility] - [facility] 6 17:01:26 Acute sinusitis 80661127 Active Dafne Vidal PA-C Attn: Accountin g,[address] [place], [address], [place] - [facility] 6 17:01:26 Problem Notes None recorded. Procedures Surgical History Date Name Laterality Status Provider Name and Address Organization Details Recorded Time 02/22/18 90 Total hysterectomy completed Iwona Tolentino MA [facility] 12/19/2021 12:14:38 Appendectomy completed Keri Venegas [place] 02/01/2014 10:48:34 Back Surgery completed Keri Venegas [place] [facility] 02/01/2014 10:48:34 Dilation and Curettage completed Keri Venegas [place] [facility] 02/01/2014 10:48:34 Tonsillectomy completed Keri Venegas [place] [facility] 02/01/2014 10:48:34 Tubal Ligation completed Keri deshpande [place] [facility] 02/01/2014 10:48:34 wrist repair completed Marjorie Isaac MA [facility] 11/19/2021 11:56:31 Imaging Results Imaging Date Name Status LastModified by Organiz ation Details LastModified Time 01/28/2015 holter monitor completed [facility] Information not available 02/11/2015 13:29:15 03/06/2015 x-ray, wrist, 3 views completed jweichert [facility] [address] [place], [address], 03/07/2015 11:30:30 11/26/2021 [facility] [address] [place], [address], 11/28/2021 10:50:41 11/26/2021 US, abdomen + pelvis completed [facility] [address] [place], [address], 11/28/2021 10:50:42 Procedure Notes None recorded. Medical Equipment None Reported. Allergies No known drug allergies Medications Name Sig Start Date Stop Date Status Note LastModified by Organization Details LastModified Time fluoxetine 40 mg capsule 11/19 completed Not Available Not Available Not Available atorvastati n 40 mg tablet TAKE 1 TABLET BY MOUTH ONCE DAILY active Not Available Not Available No t Available oxcarbazepi ne 150 mg tablet 11/19 completed Not Available Not Available Not Available venlafaxine ER 75 mg capsule,ext ended release 24 hr TAKE 1 CAPSULE BY MOUTH IN THE MORNING WITH FOOD 11/19 completed Not Available Not Available Not Available donepezil 5 mg tablet TAKE 1 TABLET BY MOUTH ONCE DAILY AT BEDTIME active Not Available Not Available No t Available clindamycin HCl 300 mg capsule 11/18 completed Not Available Not Available Not Available azithromyci n 250 mg tablet 11/18 completed Not Available Not Available Not Available alprazolam 1 mg tablet TAKE 1 TABLET BY MOUTH TWICE DAILY, AND 2 TABLETS AT BEDTIME active Not Available Not Available No t Available hydrocodone 5 mg-acetamin ophen 325 mg tablet 11/19 completed Not Available Not Available Not Available thiothixene 5 mg capsule 11/19 completed Not Available Not Available Not Available prednisone 20 mg tablet TAKE 2 TABLETS BY MOUTH ONCE DAILY 11/19 completed Not Available Not Available Not Available sertraline 100 mg tablet TAKE 1 TABLET BY MOUTH ONCE DAILY 11/19 completed Not Available Not Available Not Available quetiapine 200 mg tablet TAKE 1 TABLET BY MOUTH ONCE DAILY AT NIGHT AT BEDTIME 12/19 completed Not Available Not Available Not Available pantoprazol e 20 mg tablet,tristan yed release TAKE 2 TABLETS BY MOUTH TWICE DAILY 11/19 completed Not Available Not Available Not Available alprazolam 0.5 mg tablet 11/19 completed Not Available Not Available Not Available famotidine 20 mg tablet TAKE 1 TABLET BY MOUTH TWICE DAILY active Not Available Not Available No t Available magnesium oxide 400 mg (241.3 mg magnesium) tablet TAKE 1 TABLET BY MOUTH ONCE DAILY active Not Available Not Available No t Available temazepam 30 mg capsule TAKE 1 CAPSULE BY MOUTH ONCE DAILY AT NIGHT AT BEDTIME NEEDED FOR INSOMNIA 11/19 completed Not Available Not Available Not Available meclizine 25 mg tablet TAKE 1 TABLET BY MOUTH THREE TIMES DAILY 11/19 completed Not Available Not Available Not Available benzonatate 100 mg capsule Take 1 capsule 3 times a day by oral route. 12/19 completed Not Available Not Available Not Available cephalexin 500 mg capsule Take 1 capsule every 8 hours by oral route for 10 days. 2021 active Not Available Not Available Not Avai lable pantoprazol e 40 mg tablet,tristan yed release TAKE 1 TABLET BY MOUTH TWICE DAILY 11/19 completed Not Available Not Available Not Available trazodone 150 mg tablet 11/19 completed Not Available Not Available Not Available guanfacine 1 mg tablet 11/19 completed Not Available Not Available Not Available diclofenac sodium 75 mg tablet,tristan yed release Take 1 tablet twice a day by oral route for 30 days. 11/19 completed Not Available Not Available Not Available lisinopril 5 mg tablet TAKE 1 TABLET BY MOUTH ONCE DAILY active Not Available Not Available No t Available lovastatin 20 mg tablet TAKE 1 TABLET BY MOUTH ONCE DAILY 11/19 completed Not Available Not Available Not Available methylpredn isolone 4 mg tablets in a dose pack TAKE 1 TABLET BY MOUTH DIRECTED UNTIL ALL TAKEN 11/19 completed Not Available Not Available Not Available fluticasone propionate 50 mcg/actuati on nasal spray,suspe nsion USE 1 SPRAY(S) IN EACH NOSTRIL ONCE DAILY 11/19 completed Not Available Not Available Not Available amoxicillin 875 mg-potassiu m clavulanate 125 mg tablet TAKE 1 TABLET BY MOUTH TWICE DAILY 11/19 completed Not Available Not Available Not Available escitalopra m 10 mg tablet TAKE 1 TABLET BY MOUTH ONCE DAILY 11/19 completed Not Available Not Available Not Available aripiprazol e 5 mg tablet TAKE 1 TABLET BY MOUTH ONCE DAILY 11/19 completed Not Available Not Available Not Available memantine 10 mg tablet 1 tab bid 05/14 completed Not Available Not Available Not Available lactulose 10 gram/15 mL oral solution 11/19 completed Not Available Not Available Not Available quetiapine 400 mg tablet TAKE 1 TABLET BY MOUTH ONCE DAILY AT NIGHT AT BEDTIME FOR 30 DAYS 11/19 completed Not Available Not Available Not Available vilazodone 20 mg tablet TAKE 1/2 (ONE-HALF ) TABLET BY MOUTH ONCE DAILY FOR 7 DAYS AND THEN INCREASE TO 1 TABLET BY MOUTH ONCE DAILY active Not Available Not Available No t Available Vitals Date Recorded Body weight Body temperature Oxygen saturation Oxygen saturation in Arterial blood by Pulse oximetry Heart rate Systolic blood pressure Diastolic blood pressure Provider Name and Address Organization Details Last Updated DateTime 2 23650.0 2 g 97.8 [degF] 96 % 96 % 94 /min 122 mm[Hg] 80 mm[Hg] Marjorie tang MA [facility] 11:54:10 Date Recorded Body height Body mass index (BMI) Provider Name and Address Organization Details Last Updated DateTime 11/19/2021 160.02 cm 29.2 kg/m2 Dafne Vidal PA-C Attn: [address]ing,[address] [place], [address], [facility] 11/19/2021 12:09:48 Date Recorded Body height Body mass index (BMI) Body weight Oxygen saturation Oxygen saturation in Arterial blood by Pulse oximetry Heart rate Systolic blood pressure Diastolic blood pressure Provider Name and Address Organization Details Last Updated DateTime 2 160.02 cm 29.6 kg/m2 53568.9 3 g 97 % 97 % 79 /min 148 mm[Hg] 90 mm[Hg] Iwona Tolentino MA [facility] 2 12:12:13 Date Recorded Body weight Body height Body mass index (BMI) Systolic blood pressure Diastolic blood pressure Provider Name and Address Organization Details Last Updated DateTime 03/06/2015 17017.15 469 g 160.02 cm 24.3 kg/m2 114 mm[Hg] 66 mm[Hg] Marjorie Ford MA [facility] 6 14:42:11 Date Recorded Body weight Body height Body mass index (BMI) Provider Name and Address Organization Details Last Updated DateTime 03/14/2015 19139.36366 g 160.02 cm 24.3 kg/m2 Keri Venegas MA [facility] 03/14/2015 10:36:47 Date Recorded Body mass index (BMI) Body weight Heart rate Oxygen saturation Oxygen saturation in Arterial blood by Pulse oximetry Body height Systolic blood pressure Diastolic blood pressure Provider Name and Address Organization Details Last Updated DateTime 6 26.2 kg/m2 76520.6 7076 g 59 /min 98 % 98 % 160.02 cm 128 mm[Hg] 82 mm[Hg] Sarah Worley MA [facility] 6 16:19:03 Social History Question Answer Notes LastModified by Organizat ion Details LastModified Time Tobacco Smoking Status Former Smoker 25 years ago Marjorie Isaac MA null, [facility] 11/19/2021 11:55:09 What Is Your Level Of Alcohol Consumption? Occasional Information not available 11/19/2021 Are You Blind Or Do You Have Difficulty Seeing? Yes Glasses Information not available 11/19/2021 What Is Your Level Of Caffeine Consumption? None Information not available 11/19/2021 Are You Deaf Or Do You Have Serious Difficulty Hearing? Yes Getting Hearing Aids Information not available 11/19/2021 What Type Of Diet Are You Following? REGULAR Information not available 11/19/2021 What Was The Date Of Your Most Recent Tobacco Screening? 12/19/2021 Information not available 12/19/2021 What Is Your Relationship Status? Information not available 11/19/2021 Do You Have Smoke And Carbon Monoxide Detectors In Your Home? Yes Information not available 11/19/2021 Do You Feel Stressed (tense, Restless, Nervous, Or Anxious, Or Unable To Sleep At Night)? [id number] Information not available 11/19/2021 Do You Use Any Illicit Or Recreational Drugs? No Information not available 11/19/2021 Has Tobacco Cessation Counseling Been Provided? No Information not available 12/19/2021 Sex: Unknown Functional Status Question Answer Note LastModified by Organization D etails LastModified Time What is your exercise level? None [email or web address] Information not available 11/19/2021 Mental Status None recorded. Family History Relationship Description Onset Age of this Age Resolved Age Notes LastModified by Organization Details LastModified Time Mother Alcohol abuse Not available 10/24 16:19:03 Mother Depressive disorder Not available 10/24 16:19:03 Brother Alcohol abuse Not available 10/24 16:19:03 Brother Asthma Not availab le 11/19/2015 16:19:03 Brother Heart disease Not available 10/24 16:19:03 Brother History of hypertension Not available 0 11/19/2015 16:19:03 Brother Hyperlipidem ia Not available 10/24 16:19:03 Medical History Condition Response Acid Reflux (GERD) Y Depression Y COPD Y Asthma Y Allergies Y High Cholesterol Y Gynecological History Statement/Question Response Date of LMP Obstetrics History GPAL:G 0 P 0 0 0 0 Immunizations Vaccine Type Date Status Note Provider Nam e and Address Organization Details Recorded Time COVID-19, mRNA, LNP-S, PF, 30 mcg/0.3 mL dose 1 completed J[place]QUELINE [place], [place] - [facility] 12/19/2021 12:12:57 Influenza, split virus, trivalent, preservative 0 completed [place]QU[place] [facility] 12/19/2021 12:12:57 Influenza, split virus, trivalent, preservative 1 [place] [facility] 12/19/2021 12:12:57 COVID-19, mRNA, LNP-S, PF, 30 mcg/0.3 mL dose 1 [place]QU[place] [facility] 12/19/2021 12:12:57 COVID-19, mRNA, LNP-S, PF, 30 mcg/0.3 mL dose, gisella-sucrose 2 [place]QUEL[place] [facility] 12/19/2021 12:12:57 Pneumococcal conjugate PCV 13 6 completed [place]QUEL[place] [facility] 12/19/2021 12:12:57 pneumococcal polysaccharide PPV23 5 completed [place]QUEL[place] [facility] 12/19/2021 12:12:57 COVID-19, mRNA, LNP-S, PF, 30 mcg/0.3 mL dose, gisella-sucrose 2 completed [place]QU[place] [facility] 12/19/2021 12:12:57 Influenza, split virus, quadrivalent, PF 0 [place] [facility] 12/19/2021 12:12:57 Past Encounters Encounter ID Performer Location Encounter Start Date Encounter Closed Date Diagnosis/Indication Diagnosis SNOMED-CT Code Diagnosis ICD10 Code Diagnosis Note [id number] Dafne Vidal PA-C [facility] [address] [place] [address] 02/01/2014 10:38:19 02/02/2014 15:57:55 Upper respiratory infection [id number] [facility] [address] [place] [address] 09/07/2014 16:32:13 09/07/2014 16:58:04 Pain of breast [id number] ALEJANDRO Marroquin [facility] [address] [place] [address] 01/23/2015 14:57:17 01/23/2015 15:38:37 Upper respiratory infection 31955798 J06.9 Chronic re nal impairment 189336199 N18.9 Heart irregular 87148805 6 I49.9 [id number] Dafne Vidal PA-C [facility] [address] [place] [address] 02/07/2015 15:07:38 02/07/2015 15:45:02 Anemia 000031782 D64.9 [id number] Marlena Krueger [facility] [address] [place] [address] 03/06/2015 14:36:38 03/06/2015 15:14:57 Upper respiratory infection 82496296 J06.9 Wrist joint pain 5934056 09 M25.539 [id number] Dafne Vidal PA-C [facility] [address] [place] [address] 03/14/2015 10:34:01 03/14/2015 11:01:32 Anemia 313357235 D64.9 Wrist joint pain 2706190 09 M25.539 Upper resp iratory infection 77382177 J06.9 [id number] Dafne Vidal PA-C [facility] [address] [place] [address] 11/19/2015 15:13:21 11/19/2015 17:12:29 Gastroesophageal reflux disease 498445884 K21.0 Acute sinusitis 38013481 J01.90 [id number] Dafne Vidal PA-C [facility] [address] [place] [address] 11/19/2021 11:38:50 11/19/2021 12:38:59 Left lower quadrant pain 275939596 R10.32 [id number] Dafne Vidal PA-C [facility] [address] [place] [address] 12/19/2021 11:08:19 12/22/2021 11:00:37 Overweight 004091042 E66.3 Obesity 058677236 E66.9 Mixed anxi ety and depressive disorder 992470634 F41.8 Cyclical v omiting syndrome 47195973 R11.15 Gastro-eso phageal reflux disease with esophagitis 347236190 K21.00 Altered th ought processes 03888655 R41.89 Health Concerns Section Related Observation LastModified by Organization Detai ls LastModified Time None Recorded Concern Status LastModified by Organization Details LastModified Time None Recorded Advance Directives Directive None Recorded Payers Encounter Date Sequence Insurance Name Policy Number Policy Coello Covered Member ID Coello Member ID Guarantor Name 03/06/2015 1 [place] Nabila Nava [id number] [facility] 03/14/2015 1 [place] Nabil[place] Nava [id number] [facility] 11/19/2015 1 [place] Nabila Nava [id number] [facility] 11/19/2021 1 [place] Nabila Nava [id number] [facility] 11/19/2021 1 [place] WHEN [place] OR MEDICARE REPLACEMENT PRIMARY) [facility] [id number] [facility] 12/19/2021 1 [place]ICARE REPLACEMENT PRIMARY) [facility] [id number] [facility] 12/19/2021 1 [place] [facility]i [facility] [id number] [facility] Notes Date Note Type Note Provider Name and Address Organization Details Recorded Time 03/06/2015 text/html started getting sick a week ago. otc not working. settled into sinuses. also wrist fracture in december. still having trouble gripping. no report. Dafne Vidal PA-C Attn: Accounting,[address] [place], [address], [facility] - [facility] 03/06/2015 15:11:55 03/14/2015 text/html Patient presents to office for follow-up. Her URI is improving with the Keflex. Wrist only hurts when it is held at the same position for a while, like driving or sleeping on it. Has not worn splint for about a week now. She has been freely using her hand/wrist and doing her own PT . see xray. fractures healing Dafne Vidal PA-C Attn: Accounting,[address] [facility], [place], [address], [facility] - [facility] 03/14/2015 10:49:12 11/19/2015 text/html acid reflux and sinusitis. reports history of bleeding ulcer. no black stools Dafne Vidal PA-C Attn: Accounting,[address] [facility], [place], [address], [facility] 11/19/2015 17:01:45 11/19/2021 text/html not seen in 6 years ...has moved around a lot...saw Dr. Toledo for stroke and dementia yesterday...cva unknown time frame...figured it out by accident in the ER a week ago...has a pcp in [place]...here today for a pain in her left groin...(patient is very confused) constant cramping pain...last ER visit last week for vomiting... Dafne Vidal PA-C Attn: Accounting,[address] [facility], [place], [address], [facility] 11/19/2021 12:34:40 12/19/2021 text/html no energy...throwin g up in her sleep..GI wants her to have endoscopy but says she cannot find transport...depr essed...has a psyche named Wanda she sees by telehealth...say s she has spoken to him about this but she cant remember what she was told...sees again next week Dafne Vidal PA-C Attn: Accounting,[address] [place], [address], [facility] 12/19/2021 12:31:31 OBGyn Episode No OBEpisode recorded.
[2024-04-11 11:18] LABS: Hematocrit 37.1 % (35.0-49.0); Hemoglobin 12.1 g/dL (12.0-15.0); Mean Corpuscular HGB Conc 32.6 g/dL (32-36); Mean Corpuscular Volume 91.8 fL (78.0-102.0); Platelet Count Result 273 K/mm3 (150-420); Red Blood Count 4.04 M/mm3 (4.20-5.40); Red Cell Distribution Width 14.4 % (11.6-14.4); White Blood Count 4.4 K/mm3 (4.8-10.8)
[2024-04-11 11:25] LABS: Creatinine Urine 128.95 mg/dL (40-278); Total Protein Urine Random 22.3 mg/dL (0.0-11.9); Ur Ttl Prot Creatinine Ratio 0.17 mg/mg (0-0.20)
[2024-04-11 11:48] LABS: Albumin Level 3.9 g/dL (3.4-5.0); Anion Gap 12 mmol/L (4-12); Blood Urea Nitrogen 22 mg/dL (7-18); Calcium 9.4 mg/dL (8.5-10.1); Carbon Dioxide 26 mmol/L (21-32); Chloride 103 mmol/L (98-108); Estimated Glomerular Filt Rate 33; Glucose 170 mg/dL (70-99); Osmolality Calculated 299 mOsm/kg (285-295); Potassium 4.6 mmol/L (3.5-5.1); Sodium 141 mmol/L (136-145)
[2024-04-12 14:19] LABS: Parathyroid Intact 36 pg/mL (16-77)
== END 2024-04-11 10:45 | disposition home or self-care (01) ==
LOC: CHSLAB 10:48
PROVIDERS: PCP Internal Medicine
DX: N18.30 Chronic kidney disease, stage 3 unspecified (principal)
CPT/HCPCS: 36415; 80069; 82570; 83970; 84156; 85027

== ENCOUNTER 2024-09-12 10:00 | Outpatient (CLI) | payer MEDICARE, SELFPAY ==
--- OUTSIDE RECORDS SUMMARY | 2024-09-12 10:06 | XMS_ITS | Encounter Summary ---
Author Organization [facility] Address [address] [place] [address] Care Team Providers Care Information Systems Specialist Name Role Phone Jarrett Ang MD Unavailable [phone] Tyrese Farias MD Primary Care Provider [phone] Manas Devlin MD Unavailable [phone] Radha Griffiths [facility]- Unavailable [phone] Hola Kahn MD Unavailable [phone] Encounter Details Date Type Department Care Team (Late st Contact Info) Description 06/03/2023 Hospital Follow-up Call [facility] [address] [place] [address] Jaclyn Reese, RN Social History Tobacco Use Types Packs/Day Years Used Date Smoking Tobacco: Former Cigarettes Q uit: 2008 Smokeless Tobacco: Never Alcohol Use Standard Drinks/Week Comments Never 0 (1 standard drink = 0.6 oz pur e alcohol) 5 per month [facility] Utilities Answer Date Recorded In the past 12 months has e Fluential, gas, oil, or water [employer] threatened to shut off services in your [...] any time in the past 12 m [facility], were you homeless or living in a retirement (including now)? No 06/01/2023 Comments No Sex and Gender Information Value Date Recorded Sex Assigned at Female 05/10/2024 9:36 AM CDT Legal Sex Female 4:32 PM CDT Gender [...] Assessment Author Status No 06/01/2023 12:58 PM DARNELLT Alie Moreno RN Active * Do you have serious difficulty walking or climbing stairs? Answer Date of Assessment Author Status No 06/01/2023 12:58 PM CDT Alie Moreno RN Active * Do you have difficulty [...] Care Team (Late st Contact Info) Description 09/26/2024 10:30 AM CDT Office Visit [facility] [place] [phone] Hola Kahn MD [address] [place] [address] [address] documented as of this encounter Visit Diagnoses Not on filedocumented in this encounter Care Teams Information Systems Specialist Relationship Specialty Start Date End Date Tyrese Farias MD [address] [place] [phone] PCP - General INTERNAL MEDICINE 04/13/22 Jarrett Ang MD [address] [place] [phone] Consulting Physician CARDIOVASCULAR DISEASE 07/07/19 Manas Devlin MD [address] [place] [address] INTERVENTIONAL CARDIOLOGY 10/06/23 04/28/24 Radha Griffiths, [facility]- [address] [place] [address] Nurse Practitioner NURSE PRACTITIONER ADULT HEALTH 10/06/23 Hola Kahn MD [address] [address] Physician INTERVENTIONAL CARDIOLOGY 04/28/24 documented as of this encounter
--- OUTSIDE RECORDS SUMMARY | 2024-09-12 10:06 | XMS_ITS | Continuity of Care Document ---
Author Organization [facility] Address [address] [place] [address] [place] [address] Phone Care Team Providers Care Brick Kiln Burner Name Role Phone Daquan Swanson MD Unavailable Unavailable Allergies, Adverse Reactions, Alerts Substance Reaction Status Criticality No Known Allergies Active No Inform ation Medications Medication Instructions Dosage Effective Dates (start - stop) Status Comments Topamax 25 mg tablet take 1 Tablet by or al route every evening 25 MG - Active Procedures Procedure Date OFFICE/OUTPATIENT VISIT, [facility] Advance Directives Directive Yes / No Effective Date File Name No Information Encounters Encounter Description Practice Location Reason(s) For Visit Diagnoses Date Provider Providers Copied on Encounter OFFICE/OUTPA TIENT VISIT, [facility], [address] [place], [id number], tel:[phone] [facility], [place] headache1 (chief complaint) GERD1 (chief complaint) insomnia1 (chief complaint) HeadacheOther subjective visual disturbancesGERD w/o esophagitisEssentia l (primary) hypertension [address] [facility] [place], [id number] , [place]. tel:[phone] Referring Provider: Daquan Swanson, [address] [facility] [place], [place], [id number]. tel:[phone] Family History Family Member Type Diagnosis Age At Onset Mother Problem (finding) of 50s bone [place] Brother Problem (finding) Coronary artery disease 50 Father Problem (finding) killed by accident Payers Payer name Insurance type Covered constitution party ID Authoriza tion(s) No Information Social [...] Mental Status Date Cognitive Assessment Orientation - [place] ed to time, place, person, situation.
--- OUTSIDE RECORDS SUMMARY | 2024-09-12 10:06 | XMS_ITS | Data Portability ---
Author Organization [facility] Address [address] [facility] [place] [address] Care Team Providers Care Wire Products Inspector Name Role Phone DAFNE VIDAL Primary Care Provider [phone] Assessment No assessment recorded. Plan of Treatment Reminders Order Date Submit Date Provider Last Modified By Organization Details Last Modified Time Details Appointments None record ed. Lab urinal ysis, dipsti ck 2021 022 DAVON In-Office Order, Internal Use Only DO Not Attach Compendium DO Not Attach Compendium, Do Not Delete/merge, [id number] 12:32:14 CBC 2021 022 DAVON [facility], [address] [facility], [place], [address], 08:18:20 CMP, serum or plasma 2021 022 DAVON [facility], [address] [facility], [place], [address], 08:18:18 lipid panel, serum 2021 022 DAVON [facility], [address] [facility], [place], [address], 08:18:18 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 Surgeries None record ed. Imaging x-ray, wrist, 3 views - right wrist 01/13/ 2016 01/13/2 016 DAVON Not available 6 06:26:12 Medication Orders cephal exin 500 mg capsul e [address] [facility], [address] [place] [address], [address], 12:12:27 diclof enac sodium 75 mg tablet ,delay ed releas e 2015 [facility], [address] [place] [address], [address], 11:49:21 Keflex 500 mg capsul e [address] [facility], [address] [place], [address], 12:12:27 Patient TargetsNo targets recorded. Patient Instructions Encounter Date Encounter Id Patient Instructions Last Modified By Organization Details Last Modified Time 03/06/2015 [id number] upper respirator y infection (cold): care instructions jweichert Not available 03/06/2015 15:25:21 03/14/2015 [id number] upper respirator y infection (cold): care instructions jweichert Not available 03/14/2015 10:48:46 anemia: care instructions jweichert Not available 03/14/2015 10:48:46 cont current treatments jnanney Not available 03/14/2015 10:48:29 11/19/2015 [id number] Acute Sinusitis: Care Instructions Not available 11/19/2015 17:42:10 gastroesophageal reflux disease (GERD): care instructions Not available 11/19/2015 17:42:10 11/19/2021 [id number] abdominal pain: care instructions jnanney Not available 11/19/2021 12:18:09 12/19/2021 [id number] A healthy lifest yle: care instructions jnanney [...] 123 mg/dL 100-19 9 Not Available [facility] ([facility]) [address] [place], [address], 11/20/2021 08:18:18 11/20/19 22 11/20/2021 LIPID PANEL triglyceride s 151 mg/dL 0-149 above high normal Not Available [facility] ([facility]) [address] [place], [address], 11/20/2021 08:18:18 11/20/19 22 11/20/2021 LIPID PANEL HDL cholesterol 53 mg/dL >39 Not Available [facility] ([facility]) [address] [place], [address], 11/20/2021 08:18:18 11/20/19 22 11/20/2021 LIPID PANEL VLDL cholesterol aron 25 mg/dL 5-40 Not Available [facility] ([facility]) [address] [place], [address], 11/20/2021 08:18:18 11/20/19 22 11/20/2021 LIPID PANEL LDL chol calc ([facility]) 45 mg/dL 0-99 Not Available [facility] ([facility]) [address] [place], [address], 11/20/2021 08:18:18 11/20/19 22 11/20/2021 COMP. METAB OLIC PANEL (14) glucose 102 mg/dL 70-99 above high normal Ple ase note refer ence inter yaquelin robbins e Not Available [facility] ([facility]) [address] [place], [address], 11/20/2021 08:18:18 11/20/19 22 11/20/2021 COMP. METAB OLIC PANEL (14) BUN 19 mg/dL 8-27 Not Available [facility] ([facility]) [address] [facility] [place], [address], 11/20/2021 08:18:18 11/20/19 22 11/20/2021 COMP. METAB OLIC PANEL (14) creatinine 1.51 mg/dL 0.57-1 .00 above high normal Not Available [facility] ([facility]) [address] [facility], [place], [address], 11/20/2021 08:18:18 11/20/19 22 11/20/2021 COMP. METAB OLIC PANEL (14) eGFR 39 mL/mi n/1.7 3 >59 below low normal Not Available [facility] ([facility]) [address] [facility], [place], [address], 11/20/2021 08:18:18 11/20/19 22 11/20/2021 COMP. METAB OLIC PANEL (14) BUN/creatini ne ratio 13 12-28 Not Available [facility] ([facility]) [address] [facility] [place], [address], 11/20/2021 08:18:18 11/20/19 22 11/20/2021 COMP. METAB OLIC PANEL (14) sodium 138 mmol/ L 134-14 4 Not Available [facility] ([facility]) [address] [facility] [place], [address], 11/20/2021 08:18:18 11/20/19 22 11/20/2021 COMP. METAB OLIC PANEL (14) potassium 4.6 mmol/ L 3.5-5. 2 Not Available [facility] ([facility]) [address] [facility] [place], [address], 11/20/2021 08:18:18 11/20/19 22 11/20/2021 COMP. METAB OLIC PANEL (14) chloride 101 mmol/ L 96-106 Not Available [facility] ([facility]) [address] [facility] [place], [address], 11/20/2021 08:18:18 11/20/19 22 11/20/2021 COMP. METAB OLIC PANEL (14) carbon dioxide, total 20 mmol/ L 20-29 Not Available [facility] ([facility]) [address] [facility] [place], [address], 11/20/2021 08:18:18 11/20/19 22 11/20/2021 COMP. METAB OLIC PANEL (14) calcium 9.8 mg/dL 8.7-10 .3 Not Available [facility] ([facility]) [address] [place], [address], 11/20/2021 08:18:18 11/20/19 22 11/20/2021 COMP. METAB OLIC PANEL (14) protein, total 7.2 g/dL 6.0-8. 5 Not Available [facility] ([facility]) [address] [facility] [place], [address], 11/20/2021 08:18:18 11/20/19 22 11/20/2021 COMP. METAB OLIC PANEL (14) albumin 4.4 g/dL 3.8-4. 8 Not Available [facility] ([facility]) [address] [facility] [place], [address], 11/20/2021 08:18:18 11/20/19 22 11/20/2021 COMP. METAB OLIC PANEL (14) globulin, total 2.8 g/dL 1.5-4. 5 Not Available [facility] ([facility]) [address] [facility] [place], [address], 11/20/2021 08:18:18 11/20/19 22 11/20/2021 COMP. METAB OLIC PANEL (14) A/G ratio 1.6 1.2-2. 2 Not Available [facility] ([facility]) [address] [facility], [place], [address], 11/20/2021 08:18:18 11/20/19 22 11/20/2021 COMP. METAB OLIC PANEL (14) bilirubin, total 0.5 mg/dL 0.0-1. 2 Not Available [facility] ([facility]) [address] [facility], [place], [address], 11/20/2021 08:18:18 11/20/19 22 11/20/2021 COMP. METAB OLIC PANEL (14) alkaline phosphatase 79 IU/L 44-121 Not Available [facility]) [address] [facility], [place], [address], 11/20/2021 08:18:18 11/20/19 22 11/20/2021 COMP. METAB OLIC PANEL (14) AST (SGOT) 16 IU/L 0-40 Not Available [facility] ([facility]) [address] [facility], [place], [address], 11/20/2021 08:18:18 11/20/19 22 11/20/2021 COMP. METAB OLIC PANEL (14) ALT (SGPT) 21 IU/L 0-32 Not Available [facility] ([facility]) [address] [facility], [place], [address], 11/20/2021 08:18:18 11/20/19 22 11/20/2021 CBC, PLATE LET, NO DIFFE RENTI AL WBC 10.5 x10e3 /uL 3.4-10 .8 Not Available [facility] ([facility]) [address] [facility], [place], [address], 11/20/2021 08:18:20 11/20/19 22 11/20/2021 CBC, PLATE LET, NO DIFFE RENTI AL RBC 3.77 x10e6 /uL 3.77-5 .28 Not Available [facility] ([facility]) [address] [facility], [place], [address], 11/20/2021 08:18:20 11/20/19 22 11/20/2021 CBC, PLATE LET, NO DIFFE RENTI AL hemoglobin 11.7 g/dL 11.1-1 5.9 Not Available [facility] ([facility]) [address] [facility], [place], [address], 11/20/2021 08:18:20 11/20/19 22 11/20/2021 CBC, PLATE LET, NO DIFFE RENTI AL hematocrit 33.6 % 34.0-4 6.6 below low normal Not Available [facility] ([facility]) [address] [facility], [place], [address], 11/20/2021 08:18:20 11/20/19 22 11/20/2021 CBC, PLATE LET, NO DIFFE RENTI AL MCV 89 fL 79-97 Not Available [facility] ([facility]) [address] [facility], [place], [address], 11/20/2021 08:18:20 11/20/19 22 11/20/2021 CBC, PLATE LET, NO DIFFE RENTI AL MCH 31.0 pg 26.6-3 3.0 Not Available [facility] ([facility]) [address] [facility], [place], [address], 11/20/2021 08:18:20 11/20/19 22 11/20/2021 CBC, PLATE LET, NO DIFFE RENTI AL MCHC 34.8 g/dL 31.5-3 5.7 Not Available [facility] ([facility]) [address] [facility], [place], [address], 11/20/2021 08:18:20 11/20/19 22 11/20/2021 CBC, PLATE LET, NO DIFFE RENTI AL RDW 13.8 % 11.7-1 5.4 Not Available [facility] ([facility]) [address], [place], [address], 11/20/2021 08:18:20 11/20/19 22 11/20/2021 CBC, PLATE LET, NO DIFFE RENTI AL platelets 326 x10e3 /uL 150-45 0 Not Available [facility] ([facility]) [address], [place], [address], 11/20/2021 08:18:20 11/20/19 22 11/20/2021 CARDI OVASC ULAR REPOR T interpretati on Note Suppl ement al repor t is avail able. Not Available [facility] ([facility]) [address], [place], [address], 11/20/2021 08:18:19 11/20/19 22 11/20/2021 CARDI OVASC ULAR REPOR T pdf Not applic able Not Available [facility] ([facility]) [address], [place], [address], 11/20/2021 08:18:19 11/20/19 22 11/20/2021 LITHO LINK CKD PROGR AM interpretati on Note Suppl ement al repor t is avail able. Not Available [facility] ([facility]) [address] [facility], [place], [address], 11/20/2021 08:18:19 11/20/19 22 11/20/2021 LITHO LINK CKD PROGR AM pdf . Not Available [facility] ([facility]) [address] [facility], [place], [address], 11/20/2021 08:18:19 11/20/19 22 11/19/2021 urina lysis , dipst ick Leukocytes Small Not Available In-Offi ce Order Internal Use Only DO Not Attach Compendium DO Not Attach Compendium, Do Not Delete/merge, [id number] 11/19/2021 12:17:35 11/20/19 22 11/19/2021 urina lysis [...] DO Not Attach Compendium, Do Not Delete/merge, [id number] 11/19/2021 12:17:35 11/20/19 22 11/19/2021 urina lysis , dipst ick Blood Negati ve Not Available In-Office Order Internal Use Only DO Not Attach Compendium DO Not Attach Compendium, Do Not Delete/merge, [id number] 11/19/2021 12:17:35 11/20/19 22 11/19/2021 urina lysis , dipst ick Specific [place] 1.015 Not Available In-Off ice Order Internal Use Only DO Not Attach Compendium DO Not Attach Compendium, Do Not Delete/merge, [id number] 11/19/2021 12:17:35 11/20/19 22 11/19/2021 urina lysis , dipst ick Ketone Negati ve Not Available In-Office Order Internal Use Only DO Not Attach Compendium DO Not Attach Compendium, Do Not Delete/merge, 11/19/2021 12:17:35 11/20/19 22 11/19/2021 urina lysis , dipst ick Bilirubin Negati ve Not Available In-Office Order Internal Use Only DO Not Attach Compendium DO Not Attach Compendium, Do Not Delete/merge, [id number] 11/19/2021 12:17:35 11/20/19 22 11/19/2021 urina lysis , dipst ick Glucose Negati ve Not Available In-Office Order Internal Use Only DO Not Attach Compendium DO Not Attach Compendium, Do Not Delete/merge, [id number] 11/19/2021 12:17:35 11/20/19 22 11/19/2021 urina lysis , dipst ick Appearance Clear Not Available In-Offi ce Order Internal Use Only DO Not Attach Compendium DO Not Attach Compendium, Do Not Delete/merge, [id number] 11/19/2021 12:17:35 11/20/19 22 11/19/2021 urina lysis , dipst ick Color Yellow Not Available In-Office Order Internal Use Only DO Not Attach Compendium DO Not Attach Compendium, Do Not Delete/merge, [id number] 11/19/2021 12:17:35 02/09/20 15 01/28/2015 susan r monit or No observ ation record ed. jnanney Not Available 2014 13:29:15 03/06/19 16 03/06/2015 x-ray , wrist , 3 views No observ ation record ed. [facility] [address], [address], 03/07/2015 11:30:30 11/27/19 22 11/26/2021 US, abdom en + pelvi s No observ [facility]ion [facility] [address] [place], [address], 11/28/2021 10:50:41 11/27/19 22 11/26/2021 US, abdom en + pelvi s No observ ation record ed. [facility] [address] [place], [address], 11/28/2021 10:50:42 Result Notes None recorded. Problems Name Problem SNOMED Code Status Onset Date Resolution Date Notes Provider Name and Address Organization Details Recorded Time Pain of breast 10539257 Active JACQUELINE Wesley, [place] - [facility] 6 16:19:03 Upper respiratory infection 11660883 Active Sarah Worley MA [place], [facility] 6 16:19:03 Chronic renal impairment Active Sarah Worley MA null, [place] - [facility] 6 16:19:03 Heart irregular Active Sarahvince Worley MA [place], [facility] SI 6 16:19:03 Anemia 038162011 Active Sarah Worley [place] null, [place] - [place] 6 16:19:03 Pain of joint of wrist 129070130 Active Sarah Worley MA [place], [place] - [place] 6 16:19:03 Gastroesophage al reflux disease 446846134 Active Dafne Vidal PA-C Attn: Tiffany carter,[address] [place], [address], [facility] - SI 6 17:01:26 Acute sinusitis 79840036 Active Dafne Vidal PA-C Attn: Tiffany g,[address] [place], [address], [facility] - SIF 6 17:01:26 Problem Notes None recorded. Procedures Surgical History Date Name Laterality Status Provider Name and Address Organization Details Recorded Time 02/22/18 90 Total hysterectomy completed Iwona Tolentino MA [facility] 12/19/2021 12:14:38 Appendectomy completed Keri Venegas MA [facility] 02/01/2014 10:48:34 Back Surgery completed Keri Venegas MA [facility] 02/01/2014 10:48:34 Dilation and Curettage completed Keri Venegas MA [facility] 02/01/2014 10:48:34 Tonsillectomy completed Keri Venegas MA [facility] 02/01/2014 10:48:34 Tubal Ligation completed Keri deshpande MA [facility] 02/01/2014 10:48:34 wrist repair completed Marjorie Isaac MA [facility] 11/19/2021 11:56:31 Imaging Results None recorded. Procedure Notes None recorded. Medical Equipment None [...] Available Vitals Date Recorded Body weight Body height Body mass index (BMI) Systolic And Diastolic Provider Name and Address Organization Details Last Updated DateTime 03/06/2015 19450.154 69 g 160.02 cm 24.3 kg/m2 114/66 mm[Hg] Marjorie Ford MA [facility] 03/06/2015 14:42:11 Date Recorded Body weight Body height Body mass index (BMI) Provider Name and Address Organization Details Last Updated DateTime 03/14/2015 02987.63785 g 160.02 cm 24.3 kg/m2 Keri Venegas MA [facility] 03/14/2015 10:36:47 Date Recorded Body mass index (BMI) Body weight Heart rate Oxygen saturation Oxygen saturation in Arterial blood by Pulse oximetry Body height Systolic And Diastolic Provider Name and Address Organization Details Last Updated DateTime 6 26.2 kg/m2 05840.6 7076 g 59 /min 98 % 98 % 160.02 cm 128/82 mm[Hg] Sarah oWrley MA [facility] 6 16:19:03 Date Recorded Body height Body mass index (BMI) Provider Name and Address Organization Details Last Updated DateTime 11/19/2021 160.02 cm 29.2 kg/m2 Dafne Vidal PA-C Attn: Accounting,[address] [place], [address], [facility] 11/19/2021 12:09:48 Date Recorded Body weight Body temperature Oxygen saturation Oxygen saturation in Arterial blood by Pulse oximetry Heart rate Systolic And Diastolic Provider Name and Address Organization Details Last Updated DateTime 2 06318.0 2 g 97.8 [degF] 96 % 96 % 94 /min 122/80 mm[Hg] Marjorie tang MA [facility] 2 11:54:10 Date Recorded Body height Body mass index (BMI) Body weight Oxygen saturation Oxygen saturation in Arterial blood by Pulse oximetry Heart rate Systolic And Diastolic Provider Name and Address Organization Details Last Updated DateTime 2 160.02 cm 29.6 kg/m2 71136.9 3 g 97 % 97 % 79 /min 148/90 mm[Hg] Iwona Tolentino [place] - [facility] 12:12:13 Social History Question Answer Notes LastModified by Organizat ion Details LastModified Time Tobacco Smoking Status Former Smoker 25 years ago Marjorie Isaac MA null, [place] - [facility] 11/19/2021 11:55:09 Are You Blind Or Do You Have [...] Your Home? Yes Information not available 11/19/2021 Has Tobacco Cessation Counseling Been Provided? No Information not available 12/19/2021 Sex: Unknown Functional Status Question Answer Note LastModified by Organizat [employer] Details LastModified Time Do you use any illicit or recreational drugs? No Information not available 11/19/2021 What is your level of alcohol consumption? Occasional Information not available 11/19/2021 What is your exercise level? None Information not available 11/19/2021 Mental Status Question Answer Note LastModified by Organization D etails LastModified Time Do you feel stressed (tense, restless, nervous, or anxious, or unable to sleep at night)? [id number] Information not available 11/19/2021 Family History Relationship Description Onset Age of this Age Resolved Age Notes LastModified by Organization Details LastModified Time Mother Harmful pattern of use of alcohol Not available 10/24 16:19:03 Mother Depressive disorder Not available 10/24 16:19:03 Brother Harmful pattern of use of alcohol Not available 10/24 16:19:03 Brother Asthma Not [...] 30 mcg/0.3 mL dose, gisella-sucrose 2 completed Iwona Tolentino MA [place], [place] - [place] 12/19/2021 12:12:57 Influenza, split virus, quadrivalent, PF 0 completed Iwona Tolentino MA [place], [place] - [facility] 12/19/2021 12:12:57 Past Encounters Encounter ID Performer Location Encounter Start Date Encounter Closed Date Diagnosis/Indication Diagnosis SNOMED-CT Code Diagnosis ICD10 Code Diagnosis Note [id number] Dafne Vidal PA-C [facility] [address] [place] [address] 02/01/2014 10:38:19 02/02/2014 15:57:55 Upper respiratory infection 41318308 [id number] Umer Love MD [facility] [address] [place] [address] 09/07/2014 16:32:13 09/07/2014 16:58:04 Pain of breast 59800811 [id number] Umer Love MD [facility] [address] [place] [address] 01/23/2015 14:57:17 01/23/2015 15:38:37 Upper respiratory infection 99381888 J06.9 Chronic re nal impairment 943237079 N18.9 Heart irregular 13698892 6 I49.9 [id number] Umer Love MD [facility] [address] [place] [address] 02/07/2015 15:07:38 02/07/2015 15:45:02 Anemia 816752142 D64.9 [id number] Umer Love MD [facility] [address] [place] [address] 03/06/2015 14:36:38 03/06/2015 15:14:57 Upper respiratory infection 61445548 J06.9 Pain of hansa int of wrist 032043062 M25.539 [id number] Umer Love MD [facility] [address] [place] [address] 03/14/2015 10:34:01 03/14/2015 11:01:32 Anemia 150272915 D64.9 Pain of hansa int of wrist 598538865 M25.539 Upper resp iratory infection 59306592 J06.9 [id number] Dafne Vidal PA-C [facility] [address] [place] [address] 11/19/2015 15:13:21 11/19/2015 17:12:29 Gastroesophageal reflux disease 258533779 K21.0 Acute sinusitis 68452954 J01.90 [id number] Danfe Vidal PA-C [facility] [address] [place] [address] 11/19/2021 11:38:50 11/19/2021 12:38:59 Left lower quadrant pain 839492429 R10.32 [id number] Dafne Vidal PA-C [facility] [address] [place] [address] 12/19/2021 11:08:19 12/22/2021 11:00:37 Overweight 470367271 E66.3 Obesity 661420770 E66.9 Mixed anxi ety and depressive disorder 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 F41.8 Cyclical v omiting syndrome 00147860 R11.15 Gastro-eso phageal reflux disease with esophagitis 744641749 K21.00 Altered th ought processes 12326590 R41.89 Health Concerns Section Related Observation LastModified by Organization Detai ls LastModified Time None Recorded Concern Status LastModified by Organization Details LastModified Time None Recorded Advance Directives Directive None Recorded Payers Insurance Date Sequence Insurance Name Policy Number Policy Coello Covered Member ID Coello Member ID Guarantor Name 12/22/2021 [place] [facility] Nicki Tang [facility] [id number] Nicki [facility] 02/02/2022 1 [place] [facility] Nicki Tang [facility] [id number] Nicki [facility] 02/02/2022 1 [place] WHEN MEDICARE OR MEDICARE REPLACEMENT PRIMARY) Nicki [facility] [id number] Nicki [facility] 12/22/2021 1 [facility] [id number] Nabila Nava [id number] Nicki [facility] 12/22/2021 1 [place] Nabila Nava [id number] Nicki Romano 12/22/2021 [place] - [facility] Nabila Nava [id number] Nicki Romano Notes Date Note Type Note Provider Name and Address Organization Details Recorded Time 03/06/2015 text/html started getting sick a week ago. otc not working. settled into sinuses. also wrist fracture in december. still having trouble gripping. no report. Dafne Vidal PA-C Attn: Accounting,[address] [place], [address], [facility] - SI 03/06/2015 15:11:55 03/14/2015 text/html Patient presents to office for follow-up. Her URI is improving with the Keflex. Wrist only hurts when it is held at the same position for a while, like driving or sleeping on it. Has not worn splint for about a week now. She has been freely using her hand/wrist and doing her own PT. see xray. fractures healing Dafne Vidal PA-C Attn: Accounting,[address] [place], [address], [facility] - [facility] 03/14/2015 10:49:12 11/19/2015 text/html acid reflux and sinusitis. reports history of bleeding ulcer. no black stools Dafne Vidal PA-C Attn: Accounting,[address] [place], [address], [facility] - [facility] 11/19/2015 17:01:45 11/19/2021 text/html not seen in 6 years ...has moved around a lot...saw Dr. Toledo for stroke and dementia yesterday...cva unknown time frame...figured it out by accident in the ER a week ago...has a pcp in [place]...here today for a pain in her left groin...(patient is very confused) constant cramping pain...last ER visit last week for vomiting... Dafne Vidal PA-C Attn: Accounting,[address] [place], [address], [facility] - SI 11/19/2021 12:34:40 12/19/2021 text/html no energy...throwin emma up in her sleep..GI wants her to have endoscopy but says she cannot find transport...depr essed...has a psyche named Wanda she sees by telehealth...say s she has spoken to him about this but she cant remember what she was told...sees again next week Dafne Vidal PA-C Attn: Accounting,[address] [place], [address], [facility] - [facility] 12/19/2021 12:31:31 OBGyn Episode No OBEpisode recorded.
--- OUTSIDE RECORDS SUMMARY | 2024-09-12 10:06 | XMS_ITS | Encounter Summary ---
Author Organization [facility] Address [address] [place] [address] Care Team Providers Care Nailing Machine Operator Automatic Name Role Phone Jarrett Ang MD Unavailable [phone] Tyrese Farias MD Primary Care Provider [phone] Manas Devlin MD Unavailable [phone] Radha Griffiths [facility]- Unavailable [phone] Hola Kahn MD Unavailable [phone] Encounter Details Date Type Department Care Team (Late st Contact Info) Description 04/14/2023 Hospital Orders Only [facility] [employer] Pre/Post [address] [place] [address] Marlon Mejia MD [address] [facility], [address] [place] [address] Social History Tobacco Use Types Packs/Day Years [...] Description 09/26/2024 10:30 AM CDT Office Visit [facility] [phone] Hola Kahn MD [address] [address] documented as of this encounter Visit Diagnoses Not on filedocumented in this encounter Care Teams Nailing Machine Operator Automatic Relationship Specialty Start Date End Date Tyrese Farias MD [address] [place] [address] PCP - General INTERNAL MEDICINE 04/13/22 Jarrett Ang MD [address] [place] [phone] Consulting Physician CARDIOVASCULAR DISEASE 07/07/19 Manas Devlin MD [address] [place] [phone] INTERVENTIONAL CARDIOLOGY 10/06/23 04/28/24 Radha Griffiths [facility] [address] [place] [address] Nurse Practitioner NURSE PRACTITIONER ADULT HEALTH 10/06/23 Hola Kahn MD [address] [address] Physician INTERVENTIONAL CARDIOLOGY 04/28/24 documented as of this encounter
--- OUTSIDE RECORDS SUMMARY | 2024-09-12 10:06 | XMS_ITS | Encounter Summary ---
Author Organization [facility] Address [address] [place] [address] Care Team Providers Care Shoe Sticks Repairer Name Role Phone Tyrese Farias MD Primary Care Provider [phone] Radha Griffiths [facility]- Unavailable [phone] Hola Kahn MD Unavailable [phone] Reason for Referral * Sleep Lab (Routine) - New Request Specialty Diagnoses / Procedures Referred By Tera garrison Referred To Contact [facility] Sleep Disorders Diagnoses Snoring Procedures Sleep Study Unattended (Home Study) ([address]) Jamarcus Reese MD [address] [place] [address] Phone: tel: fax: [facility] [address] [place] [address] Phone: tel: Referral ID Status Reason Start Date Expiration Date V isits Requested Visits Authorized [id number] New Request 08/16/2024 09/17/2025 1 1 Encounter Details Date Type Department Care Team (Late st Contact Info) Description 08/16/2024 Transcribe Orders [facility] Pre Access Team [address] [place] [address] Jamarcus Reese MD [address] [place] [address] Social History Tobacco Use Types Packs/Day Years Used Date Smoking Tobacco: Former Cigarettes Q uit: 2008 Smokeless Tobacco: Never Alcohol Use Standard Drinks/Week Comments Never 0 (1 standard drink = 0.6 oz pur e alcohol) 5 per month [facility] Utilities Answer Date Recorded In the past 12 months has th e [employer], gas, oil, or water company threatened to shut off services in your [...] any time in the past 12 m [facility], were you homeless or living in a group home (including now)? No 06/01/2023 Comments No Sex [...] Description 09/26/2024 10:30 AM CDT Office Visit [facility] [place] [address] Hola Kahn MD [address] [facility] [address] [address] Scheduled Orders Name Type Priority Associated Diagnoses Orde r Schedule Sleep Study Unattended (Home Study) ([address]) Sleep Center Routine Snoring 1 Occurrences starting 08/16/2024 until 08/16/2025 documented as of this encounter Visit Diagnoses Diagnosis Snoring- Primary Other dyspnea and respiratory abnormality documented in this encounter Care Teams Shoe Sticks Repairer Relationship Specialty Start Date End Date Tyrese Farias MD [address] [place] [address] PCP - General INTERNAL MEDICINE 04/13/22 Radha Griffiths, ANP- [address] [place] [address] Nurse Practitioner NURSE PRACTITIONER ADULT HEALTH 10/06/23 Hola Kahn MD [address] [facility] [address] [address] Physician INTERVENTIONAL CARDIOLOGY 04/28/24 documented as of this encounter
--- OUTSIDE RECORDS SUMMARY | 2024-09-12 10:06 | XMS_ITS | Clinical Summary ---
Author Organization [facility] Address [address] [place] [address] Phone Care Team Providers Care Keeler Polygraph Operator Name Role Phone Indra Li MD Primary Care Provider [phone] Allergies No known active allergies Medications ALPRAZolam (XANAX) 1 MG tablet Take 1 [...] is going to inpatient psych unit at [facility]. Immunizations Immunization Administration Dates Next Due Influenza, Injectable, Quadrivalent [...] drink = 0.6 oz pur e alcohol) Comments Unknown Sex and Gender Information Value Date Recorded Sex Assigned at Not on file Legal Sex Female 12:47 PM MDT Gender Identity Not on file Sexual Orientation [...] 11:21 AM CDT Height 162.6 cm (5' 4) 12/06/2019 11:21 AM CDT Body Mass Index 28.32 12/06/2019 11:21 AM CDT Plan of Treatment Health Maintenance Due Date Last Done Comments Influenza Vaccine (#1) 2024 Insurance MEDICARE Care Teams Keeler Polygraph Operator Relationship Specialty Start Date End Date Indra Li MD [address] [facility] [address] [place] [address] PCP - General Family Medicine 06/25/20
--- OUTSIDE RECORDS SUMMARY | 2024-09-12 10:06 | XMS_ITS | Patient Health Record ---
Author Organization [facility] Address [address] [place], [place] [address] Care Team Providers Care Locomotive Electrician Name Role Phone ALLIE Evangelista Unavailable [phone] Indra Li Unavailable Unavailable Allergies No Known Allergies Reason For Referral No Information Medications Medication SIG (Take, Route, Frequency, Duration) Notes Start Date End Date Status Medrol Dosepak ORAL Medrol DosepakOr iginal MedicationMedrol Dosepak *Reorder from [employer] for eRx and Interaction Alerts* 12/23/2020 Active Plan Of Treatment No Information Insurance Providers Payer Name Payer Address Payer Phone Subscriber Number Group Number Insured Name Patient Relationship to Insured Coverage Start Date Coverage End Date [facility] [address] [place] [address] [id number] VANE RAMIREZ Self - patient is the insured
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
[2024-09-12 10:53] LABS: Hemoglobin A1C 5.9 % (<5.7)
[2024-09-12 11:10] LABS: Alanine Aminotransferase 43 U/L (6-35); Albumin Level 4.2 g/dL (3.5-5.1); Alkaline Phosphatase 84 U/L (38-126); Anion Gap 10 mmol/L (4-12); Aspartate Amino Transferase 38 U/L (14-36); Bilirubin,Total 0.7 mg/dL (0.2-1.3); Blood Urea Nitrogen 17 mg/dL (7-17); Calcium 9.5 mg/dL (8.4-10.2); Carbon Dioxide 23 mmol/L (22-30); Chloride 107 mmol/L (98-107); Cholesterol 157 mg/dL (0-200); Estimated Glomerular Filt Rate 33; Glucose 151 mg/dL (65-110); HDL Direct 71 mg/dL; Osmolality Calculated 294 mOsm/kg (285-295); Potassium 4.6 mmol/L (3.4-5.0); Sodium 140 mmol/L (137-145); Total Protein 6.7 g/dL (6.3-8.2); Triglycerides 177 mg/dL (<150)
[2024-09-12 15:15] LABS: Thyroid Stimulating Hormone 3.530 uIU/mL (0.465-4.680)
== END 2024-09-12 10:01 | disposition home or self-care (01) ==
LOC: CHSLAB 10:04
PROVIDERS: PCP Internal Medicine
DX: R73.03 Prediabetes (principal); R53.83 Other fatigue; I10 Essential (primary) hypertension
CPT/HCPCS: 36415; 80053; 80061; 83036; 84443

== ENCOUNTER 2024-10-19 13:00 | Outpatient (CLI) | payer MEDICARE, SELFPAY ==
--- NOTE | ~2024-10-19 | MR_ITS ---
EXAMINATION: MR brain/brain stem wo con DATE: 10/19/2024 14:39 INDICATION: Cerebral vascular disease TECHNIQUE: Magnetic resonance imaging (MRI) of the brain and brainstem was performed without intravenous contrast. Sequences included sagittal and axial T1-weighted SE, axial diffusion-weighted FS SE, axial T2*-weighted GRE, axial T2-weighted FLAIR Propeller, and axial T2-weighted Propeller. Apparent diffusion coefficient (ADC) maps were created. COMPARISON: MRI dated 10/28/[address] dated 07/07/2021. FINDINGS: Small chronic infarction left cerebellum. Small chronic infarction right occipital lobe. No ventriculomegaly or midline shift. Structures of the posterior fossa including 7/8th cranial nerve complexes are otherwise unremarkable. Orbits are symmetric. Paranasal sinuses are normal. No acute inf arction or hemorrhage. There are scattered mild periventricular and subcortical white matter changes, most likely related to small vessel ischemic disease (microangiopathy). No ventriculomegaly or midline shift. Small prominent perivascular space right, unchanged. IMPRESSION: 1. No acute intracranial abnormality. 2: Focal chronic infarctions right occipital lobe and left cerebellum. 3: Chronic age-related findings. Reviewed, dictated and finalized at location O.
--- NOTE | ~2024-10-19 | MR_ITS ---
EXAMINATION: MRA neck wo con DATE: 10/19/2024 14:39 INDICATION: Cerebrovascular disease and cerebral infarct. TECHNIQUE: Magnetic resonance angiography (MRA) of the neck was performed without intravenous contrast. Sequences included axial 2D-time of flight T1- weighted FSPGR and coronal T1-weighted FSPGR without intravenous contrast. COMPARISON: None. FINDINGS: There is % stenosis of the right and left carotid bulbs relative to normal distal artery lumen diameter (NASCET criteria). There is severe tortuosity of the more distal extracranial internal carotid arteries. There is significant loss of signal along a portion of the left internal carotid artery within the region of tortuosity of the arteries of oriented horizontally which could be due to a moderate grade stenosis or more likely artifact related to the tortuosity. Right vertebral artery is dominant. The left P1 segment is patent. The right posterior tibial artery supplied by the right internal carotid artery via a patent right posterior communicating artery. IMPRESSION: 1. 0% stenosis of the right and left carotid bulbs relative to normal distal artery lumen diameter (NASCET criteria). 2. The more distal bilateral extracranial internal carotid arteries are markedly tortuous. There is a segment with signal loss within the horizontally oriented portion of the tortuous left internal carotid artery which could be due to an up to moderate 50-70% stenosis or more likely flow related artifact secondary to the tortuosity of the vessel at this level. Would consider further evaluation with CT angiogram for more definitive determination. Reviewed, dictated and finalized at location A. IMPRESSION: 1. 0% stenosis of the right and left carotid bulbs relative to normal distal ar sharon lumen diameter (NASCET criteria). 2. The more distal bilateral extracranial internal carotid arteries are markedl y tortuous. There is a segment with signal loss within the horizontally oriente d portion of the tortuous left internal carotid artery which could be due to an up to moderate 50-70% stenosis or more likely flow related artifact secondary to the tortuosity of the vessel at this level. Would consider further evaluatio n with CT angiogram for more definitive determination.
--- NOTE | ~2024-10-19 | MR_ITS ---
EXAMINATION: MRA brain wo con DATE: 10/19/2024 14:39 INDICATION: Cerebrovascular disease. Cerebral infarct. TECHNIQUE: Magnetic resonance angiography (MRA) of the brain was performed without intravenous contrast by the 3D [id number] technique. COMPARISON: None. FINDINGS: There is normal flow related signal seen within the vertebral, basilar and internal carotid arteries. There is no proximal stenosis. There are no aneurysms identified. Both A1 segments are patent. The right A1 segment is relatively small compared with the left with collateral flow to the right anter ior cerebral artery supplied via a patent anterior communicating artery. Left P1 segment is patent. The right posterior cerebral artery supplied from the right internal carotid artery via a patent right posterior communicating artery. Flow in the cerebral arteries is symmetric. IMPRESSION: 1. Normal anatomic variation of the [place] as detailed above. No hemodynamically significant stenosis, aneurysm or thrombosis. Reviewed, dictated and finalized at location A. IMPRESSION: 1. Normal anatomic variation of the [place] as detailed above. No hemo dynamically significant stenosis, aneurysm or thrombosis.
--- OUTSIDE RECORDS SUMMARY | 2024-10-19 13:16 | XMS_ITS | Clinical Summary ---
Author Organization [facility] Address [address] [place] [address] Phone Care Team Providers Care Quality Control Assistant Name Role Phone Indra Li MD Primary Care Provider [phone] Allergies No known active allergies Medications ALPRAZolam [...] is going to inpatient psych unit at [place]. Immunizations Immunization Administration Dates Next Due Influenza, [...] Vaccine (#1) 2024 Insurance MEDICARE Care Teams Quality Control Assistant Relationship Specialty Start Date End Date Indra Li MD [address] [facility] [address] [place] [address] PCP - General Family Medicine 06/25/20
--- OUTSIDE RECORDS SUMMARY | 2024-10-19 13:16 | XMS_ITS | Encounter Summary ---
Author Organization [facility] Address [address] [place] [address] Care Team Providers Care Director Organizational Name Role Phone Tyrese Farias MD Primary Care Provider [phone] Radha Griffiths [facility] Unavailable [phone] Hola Kahn MD Unavailable [phone] Reason for Visit * Reason Onset Date Comments Orders 10/19/2024 Encounter Details Date Type Department Care Team ([facility] Contact Info) Description 10/19/2024 Telephone [facility] [address] [place] [address] Hola Kahn MD [address] [facility] [address] [place], [place] [address] Orders Social History Tobacco Use Types Packs/Day Years Used Date Smoking Tobacco: Former Cigarettes Q uit: 2008 Smokeless Tobacco: Never Alcohol Use Standard Drinks/Week Comments Never 0 (1 standard drink = 0.6 oz pur e alcohol) 5 per month [facility] Utilities Answer Date Recorded In the past 12 months has e electric, gas, oil, or water company threatened to [...] any time in the past 12 m [facility], were you homeless or living in a long term (including now)? No 06/01/2023 Comments No Sex [...] Moreno RN Active documented in this encounter Progress Notes * Kristina Griffiths - 10/19/2024 10:48 AM CDT Patient would like to have new order put in so that she can have her Echo done at the [facility] in [place].. She is aware that it won't be done tomorrow and we will call her with new date and time Contact: documented in this encounter Plan of Treatment Upcoming Encounters Date Type Department Care Team (Late Contact Info) Description 01/02/2025 12:30 PM CASH APPLICATIONS ANALYST Office Visit [facility] [place] [address] Hola Kahn MD [address] [facility] [address] [address] documented as of this encounter Visit Diagnoses Not on filedocumented in this encounter Care Teams Director Organizational Relationship Specialty Start Date End Date Tyrese Farias MD [address] [place] [address] PCP - General INTERNAL MEDICINE 04/13/22 Radha Griffiths ANP- [address] [place] [address] Nurse Practitioner NURSE PRACTITIONER ADULT HEALTH 10/06/23 Hola Kahn MD [address] [facility] [address] [address] Physician INTERVENTIONAL CARDIOLOGY 04/28/24 documented as of this encounter
--- OUTSIDE RECORDS SUMMARY | 2024-10-19 13:16 | XMS_ITS | Encounter Summary ---
Author Organization [facility] Address [address] [place] [address] Care Team Providers Care Senior Software Test Engineer Name Role Phone Jarrett Ang MD Unavailable [phone] Tyrese Farias MD Primary Care Provider [phone] Manas Devlin MD Unavailable [phone] Radha Griffiths [facility]- Unavailable [phone] Hola Kahn MD Unavailable [phone] Encounter Details Date Type Department Care Team (Late st Contact Info) Description 04/14/2023 Hospital Orders Only [employer] Operator Pre/Post [address] [place] [address] Marlon Mejia MD [address] [facility], [address] [place] [address] Social History Tobacco Use Types Packs/Day Years [...] Care Team (Late st Contact Info) Description 01/02/2025 12:30 PM JUNIOR TECHNICAL WRITER Office Visit [facility] [phone] Hola Kahn MD [address] [address] documented as of this encounter Visit Diagnoses Not on filedocumented in this encounter Care Teams Senior Software Test Engineer Relationship Specialty Start Date End Date Tyrese Farias MD [address] [place] [address] PCP - General INTERNAL MEDICINE 04/13/22 Jarrett Ang MD [address] [place] [phone] Consulting Physician CARDIOVASCULAR DISEASE 07/07/19 Manas Devlin MD [address] [place] [phone] INTERVENTIONAL CARDIOLOGY 10/06/23 04/28/24 Radha Griffiths [facility] [address] [place] [address] Nurse Practitioner NURSE PRACTITIONER ADULT HEALTH 10/06/23 Hola Kahn MD [address] [address] Physician INTERVENTIONAL CARDIOLOGY 04/28/24 documented as of this encounter
--- OUTSIDE RECORDS SUMMARY | 2024-10-19 13:16 | XMS_ITS | Patient Health Record ---
Author Organization [facility] Address [address] [place], [place] [id number] Care Team Providers Care Assistant Grocery Name Role Phone ALLIE Evangelista Unavailable [phone] Indra Li Unavailable Unavailable Allergies No Known Allergies Reason For Referral No Information Medications Medication SIG (Take, Route, Frequency, Duration) Notes Start Date End Date Status Medrol Dosepak ORAL Medrol DosepakOr iginal MedicationMedrol Dosepak *Reorder from [employer] for eRx and Interaction Alerts* 12/23/2020 Active Plan Of Treatment No Information Insurance Providers Payer Name Payer Address Payer Phone Subscriber Number Group Number Insured Name Patient Relationship to Insured Coverage Start Date Coverage End Date [facility] [address] [place] [address] [phone] [id number] VANE RAMIREZ Self - patient is the insured
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
--- OUTSIDE RECORDS SUMMARY | 2024-10-19 13:16 | XMS_ITS | Encounter Summary ---
Author Organization [facility] Address [address] [place] [address] Care Team Providers Care Glass Melt Operator Name Role Phone Jarrett Ang MD Unavailable [phone] Tyrese Farias MD Primary Care Provider [phone] Manas Devlin MD Unavailable [phone] Radha Griffiths [facility]- Unavailable [phone] Hola Kahn MD Unavailable [phone] Encounter Details Date Type Department Care Team (Late st Contact Info) Description 06/03/2023 Hospital Follow-up Call [facility] [address] [place] [address] Jaclyn Reese, RN Social History Tobacco Use Types Packs/Day Years Used Date Smoking Tobacco: Former Cigarettes Q uit: 2008 Smokeless Tobacco: Never Alcohol Use Standard Drinks/Week Comments Never 0 (1 standard drink = 0.6 oz pur e alcohol) 5 per month [facility] Utilities Answer Date Recorded In the past 12 months has e [employer], gas, oil, or water [employer] threatened to shut off services in your [...] any time in the past 12 m [facility], were you homeless or living in a usp (including now)? No 06/01/2023 Comments No Sex [...] PM DARNELLT Alie Moreno RN Active * Because of [...] Date Author Status No 06/01/2023 12:58 PM Alie Taylor RN Active documented in this encounter Plan of Treatment Upcoming Encounters Date Type Department Care Team (Late st Contact Info) Description 01/02/2025 12:30 PM TANK SETTER Office Visit [facility] [place] [address] Hola Kahn MD [address] [place] [address] [address] documented as of this encounter Visit Diagnoses Not on filedocumented in this encounter Care Teams Glass Melt Operator Relationship Specialty Start Date End Date Tyrese Farias MD [address] [place] [address] PCP - General INTERNAL MEDICINE 04/13/22 Jarrett Ang MD [address] [place] [phone] Consulting Physician CARDIOVASCULAR DISEASE 07/07/19 Manas Devlin MD [address] [place] [address] INTERVENTIONAL CARDIOLOGY 10/06/23 04/28/24 Radha Griffiths, [facility] [address] [place] [address] Nurse Practitioner NURSE PRACTITIONER ADULT HEALTH 10/06/23 Hola Kahn MD [address] [address] Physician INTERVENTIONAL CARDIOLOGY 04/28/24 documented as of this encounter
== END 2024-10-19 13:01 | disposition home or self-care (01) ==
PROVIDERS: PCP Internal Medicine; Visit Provider Internal Medicine
DX: I67.9 Cerebrovascular disease, unspecified (principal); I63.549 Cerebral infarction due to unspecified occlusion or stenosis of unspecified cerebellar artery; R42 Dizziness and giddiness
CPT/HCPCS: 70544; 70547; 70551

== ENCOUNTER 2024-11-14 14:47 | Outpatient (CLI) | payer MEDICARE, SELFPAY ==
--- NOTE | 2024-11-14 14:53 | ECHO_ITS ---
Patient Info Name: Nicki Romano Age: 63 years : 1960 Gender: Female Ht: 63 in Wt: 168 lbs BSA: 1.87 m2 HR: 70 bpm BP: 103 / 56 mmHg Technical Quality: Good Exam Date: 11/14/2024 3:03 PM Patient Status: O Admit Date: 11/14/2024 Exam Type: CA echo doppler color flow Complete two-dimensional, color flow and Doppler transthoracic echocardiogram is performed. Plater Apprentice: Chacha Villeda Summary 1. Complete two-dimensional, color flow and Doppler transthoracic echocardiogram is performed. 2. Left ventricular chamber dimension is normal. 3. Left ventricular systolic function is normal, estimated at 60-65. 4. The left ventricular diastolic function is grade I diastolic dysfunction. 5. E/e' 6 is not elevated. 6. There is trace mitral valve regurgitation. Left Ventricle E/e' 6 is not elevated. Left ventricular chamber dimension is normal. Left ventricular systolic function is normal, estimated at 60-65. The left ventricular diastolic function is grade I diastolic dysfunction. Right Ventricle Right ventricular chamber dimension is normal. Right ventricular systolic function is normal. Left Atria Left atrial chamber dimension is normal. Right Atria Right atrial chamber dimension is normal. Atrial Septum Interatrial septum not well visualized by 2D and color flow imaging. No obvious patent foramen ovale by color doppler. Aortic Valve The aortic valve is trileaflet. There is no aortic valve stenosis. There is no aortic valve regurgitation. Pulmonic Valve There is no pulmonic regurgitation. Mitral Valve There is no mitral valve stenosis. There is trace mitral valve regurgitation. Tricuspid Valve There is no tricuspid valve regurgitation. Pericardium/Pleural There is no pericardial effusion. Inferior Vena Cava Normal inferior vena cava with >50% collapse upon inspiration consistent with normal right atrial pressure, 5 mmHg. Aorta The aortic root size at the sinus of Valsalva is normal. Left Ventricular Outflow Tract Name Value Normal LVOT 2D LVOT Diameter 2.0 cm LVOT Doppler LVOT Peak Velocity 122 cm/s LVOT Peak Gradient 6 mmHg LVOT Mean Gradient 3 mmHg LVOT VTI 19 cm LVOT VTI/AV VTI Ratio 0.9 LVOT Stroke Volume 60 ml LVOT CO 4.2 l/min LVOT CI 2.2 l/min/m2 Pulmonic Valve Name Value Normal RVOT Doppler RVOT Peak Velocity 102 cm/s RVOT Peak Gradient 4 mmHg PV Doppler PV Peak Velocity 100 cm/s PV Peak Gradient 4 mmHg Mitral Valve Name Value Normal MV Diastolic Function MV E Peak Velocity 45 cm/s MV A Peak Velocity 62 cm/s MV E/A 0.7 MV Decel Time (PW) 444 ms MV Annular TDI MV E/e' (Septal) 8.0 MV E/e' (Lateral) 5.6 MV E/e' (Average) 6.8 Tricuspid Valve Name Value Normal Estimated PAP/RSVP RA Pressure 5 mmHg <=5 Aortic Valve Name Value Normal AV Doppler AV Peak Velocity 131 cm/s AV Peak Gradient 7 mmHg AV Mean Gradient 4 mmHg AV VTI 21 cm AV Area (Cont Eq VTI) 2.8 cm2 >=3.0 AV Area (Cont Eq Juan Jose) 2.9 cm2 AV DI (Juan Jose) 0.93 AV Regurgitation 2D LVOT Area 3.1 cm2 Ventricles Name Value Normal LV Dimensions 2D/MM IVS Diastolic Thickness (2D) 0.9 cm 0.6-1.0 LVID Diastole (2D) 3.8 cm 3.8-5.2 LVIW Diastolic Thickness (2D) 0.9 cm 0.6-0.9 LVID Systole (2D) 2.4 cm 2.2-3.5 LVOT Diameter 2.0 cm LV Mass (2D Cubed) 96.21 g 67.00-162.00 LV Mass Index (2D Cubed) 52 g/m2 43-95 Relative Wall Thickness (2D) 0.45 <=0.42 LV Fractional Shortening/Ejection Fraction 2D/MM LV Fractional Shortening (2D) 37 % 27-45 LV EF (2D Teichalondra) 68 % LV Diastolic Volume (4C MOD) 54 ml LV EF (4C MOD) 58 % LV Diastolic Volume (2C MOD) 48 ml LV EF (2C MOD) 55 % LV Diastolic Volume (BP MOD) 55 ml 46-106 LV Diastolic Volume Index (BP MOD) 30 ml/m2 29-61 LV Systolic Volume (BP MOD) 24 ml 14-42 LV Systolic Volume Index (BP MOD) 13 ml/m2 8-24 LV EF (BP MOD) 56 % 54-74 LV Diastolic Length (4C) 7.5 cm LV Systolic Length (4C) 6.8 cm LV Stroke Volume (4C MOD) 32 ml Atria Name Value Normal LA Dimensions LA Volume (4C A-L) 24 ml LA Volume (BP A-L) 22 ml RA Dimensions RA Systolic Major [place] Length (4C) 4.4 cm 2.2-2.8 RA Area (4C) 10.3 cm2 <=18.0 Report Signatures
--- OUTSIDE RECORDS SUMMARY | 2024-11-14 14:55 | XMS_ITS | Encounter Summary ---
Author Organization [facility] Address [address] [place] [address] Care Team Providers Care Meat Stocker Name Role Phone Jarrett Ang MD Unavailable [phone] Tyrese Farias MD Primary Care Provider [phone] Manas Devlin MD Unavailable [phone] Radha Griffiths [facility]- Unavailable [phone] Hola Kahn MD Unavailable [phone] Encounter Details Date Type Department Care Team (Late st Contact Info) Description 04/14/2023 Hospital Orders Only [facility] Processing Tech Pre/Post [address] [place] [address] Marlon Mejia MD [address] [facility], [address] [place] [address] Social History Tobacco Use Types Packs/Day Years [...] st Contact Info) Description 01/02/2025 12:30 PM PROFESSOR OF MUSICOLOGY Office Visit [facility] [phone] Hola Kahn MD [address] [address] documented as of this encounter Visit Diagnoses Not on filedocumented in this encounter Care Teams Meat Stocker Relationship Specialty Start Date End Date Tyrese Farias MD [address] [place] [address] PCP - General INTERNAL MEDICINE 04/13/22 Jarrett Ang MD [address] [place] [phone] Consulting Physician CARDIOVASCULAR DISEASE 07/07/19 Manas Devlin MD [address] [place] [phone] INTERVENTIONAL CARDIOLOGY 10/06/23 04/28/24 Radha Griffiths [facility] [address] [place] [address] Nurse Practitioner NURSE PRACTITIONER ADULT HEALTH 10/06/23 Hola Kahn MD [address] [address] Physician INTERVENTIONAL CARDIOLOGY 04/28/24 documented as of this encounter
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
--- OUTSIDE RECORDS SUMMARY | 2024-11-14 14:55 | XMS_ITS | Clinical Summary ---
Author Organization [facility] Address [address] [place] [address] Phone Care Team Providers Care Instructor Physical Name Role Phone Indra Li MD Primary Care Provider [phone] Allergies No known active allergies Medications ALPRAZolam [...] is going to inpatient psych unit at [place]. Immunizations Immunization Administration Dates Next Due Influenza, [...] Vaccine (#1) 2024 Insurance MEDICARE Care Teams Instructor Physical Relationship Specialty Start Date End Date Indra Li MD [address] [facility] [address] [place] [address] PCP - General Family Medicine 06/25/20
--- OUTSIDE RECORDS SUMMARY | 2024-11-14 14:55 | XMS_ITS | Encounter Summary ---
Author Organization [facility] Address [address] [place] [address] Care Team Providers Care Peoplesoft Programmer Name Role Phone Jarrett Ang MD Unavailable [phone] Tyrese Farias MD Primary Care Provider [phone] Manas Devlin MD Unavailable [phone] Radha Griffiths [facility]- Unavailable [phone] Hola Kahn MD Unavailable [phone] Encounter Details Date Type Department Care Team (Late st Contact Info) Description 06/03/2023 Hospital Follow-up Call [facility] Cardi[facility] Care Unit [address] [place] [address] Jaclyn Reese, RN Social History Tobacco Use Types Packs/Day Years Used Date Smoking Tobacco: Former Cigarettes Q uit: 2008 Smokeless Tobacco: Never Alcohol Use Standard Drinks/Week Comments Never 0 (1 standard drink = 0.6 oz pur e alcohol) 5 per month [facility] Utilities Answer Date Recorded In the past 12 months has e [employer], gas, oil, or water [employer] threatened to shut off services in your [...] any time in the past 12 m [facility], were you homeless or living in a [...] Assessment Author Status No 06/01/2023 12:58 PM DARENLLT Alie Moreno RN Active * Do you [...] st Contact Info) Description 01/02/2025 12:30 PM EDGE STAINER Office Visit [facility] [place] [address] Hola Kahn MD [address] [place] [address] [address] documented as of this encounter Visit Diagnoses Not on filedocumented in this encounter Care Teams Peoplesoft Programmer Relationship Specialty Start Date End Date Tyrese Farias MD [address] [place] [address] PCP - General INTERNAL MEDICINE 04/13/22 Jarrett Ang MD [address] [place] [phone] Consulting Physician CARDIOVASCULAR DISEASE 07/07/19 Manas Devlin MD [address] [place] [address] INTERVENTIONAL CARDIOLOGY 10/06/23 04/28/24 Radha Griffiths, [facility]- [address] [place] [address] Nurse Practitioner NURSE PRACTITIONER ADULT HEALTH 10/06/23 Hola Kahn MD [address] [address] Physician INTERVENTIONAL CARDIOLOGY 04/28/24 documented as of this encounter
--- OUTSIDE RECORDS SUMMARY | 2024-11-14 14:55 | XMS_ITS | Patient Health Record ---
Author Organization [facility] Address [address] [place], [place] [address] Care Team Providers Care Steel Handler Name Role Phone ALLIE Evangelista Unavailable [phone] Indra Li Unavailable Unavailable Allergies No Known Allergies Reason For Referral No Information Medications Medication SIG (Take, Route, Frequency, Duration) Notes Start Date End Date Status Medrol Dosepak ORAL Medrol DosepakOr iginal MedicationMedrol Dosepak *Reorder from [employer] for eRx and Interaction Alerts* 12/23/2020 Active Plan Of Treatment No Information Insurance Providers Payer Name Payer Address Payer Phone Subscriber Number Group Number Insured Name Patient Relationship to Insured Coverage Start Date Coverage End Date [facility] [address] [place] [address] [id number] VANE RAMIREZ Self - patient is the insured
== END 2024-11-14 14:48 | disposition home or self-care (01) ==
PROVIDERS: PCP Internal Medicine
DX: Q21.12 Patent foramen ovale (principal)
CPT/HCPCS: 93306

== ENCOUNTER 2024-12-06 10:00 | Outpatient (CLI) | payer MEDICARE, SELFPAY ==
[2024-12-06 10:13] LABS: Hematocrit 35.8 % (35.0-42.0); Hemoglobin 12.1 g/dL (11.7-13.8); Mean Corpuscular HGB Conc 33.8 g/dL (32-36); Mean Corpuscular Hemoglobin 31.0 pg (27.0-31.0); Mean Corpuscular Volume 91.8 fL (78.0-102.0); Platelet Count Result 279 K/mm3 (150-420); Red Blood Count 3.90 M/mm3 (4.20-5.40); White Blood Count 5.0 K/mm3 (4.8-10.8)
[2024-12-06 11:03] LABS: Albumin Level 4.6 g/dL (3.5-5.1); Anion Gap 12 mmol/L (4-12); Blood Urea Nitrogen 23 mg/dL (7-17); Calcium 10.2 mg/dL (8.4-10.2); Carbon Dioxide 23 mmol/L (22-30); Chloride 105 mmol/L (98-107); Estimated Glomerular Filt Rate 30; Glucose 160 mg/dL (65-110); Osmolality Calculated 296 mOsm/kg (285-295); Potassium 4.9 mmol/L (3.4-5.0); Sodium 140 mmol/L (137-145)
--- OUTSIDE RECORDS SUMMARY | 2024-12-06 11:34 | XMS_ITS | Patient Health Record ---
Author Organization [facility] Address [address] [place], [place] [address] Care Team Providers Care Washer Carcass Name Role Phone ALLIE Evangelista Unavailable [phone] Indra Li Unavailable Unavailable Allergies No Known Allergies Reason For Referral No Information Medications Medication SIG (Take, Route, Frequency, Duration) Notes Start Date End Date Status Medrol Dosepak ORAL Medrol DosepakOr iginal MedicationMedrol Dosepak *Reorder from [employer] for eRx and Interaction Alerts* 12/23/2020 Active Plan Of Treatment No Information Insurance Providers Payer Name Payer Address Payer Phone Subscriber Number Group Number Insured Name Patient Relationship to Insured Coverage Start Date Coverage End Date [facility] [address] [place] [address] [id number] VANE RAMIREZ Self - patient is the insured
--- OUTSIDE RECORDS SUMMARY | 2024-12-06 11:34 | XMS_ITS | Clinical Summary ---
Author Organization [facility] Address [address] [place] [address] Phone Care Team Providers Care Beam Racker Name Role Phone Indra Li MD Primary Care Provider [phone] Allergies No known active allergies Medications ALPRAZolam [...] is going to inpatient psych unit at [facility]. Immunizations Immunization Administration Dates Next Due Influenza, [...] Vaccine (#1) 2024 Insurance MEDICARE Care Teams Beam Racker Relationship Specialty Start Date End Date Indra Li MD [address] [facility] [address] [place] [address] PCP - General Family Medicine 06/25/20
[2024-12-07 07:27] LABS: Parathyroid Intact 45.5 (7.5-53.5)
[2024-12-12 15:20] LABS: Alanine Aminotransferase 48 U/L (6-35); Alkaline Phosphatase 82 U/L (38-126); Aspartate Amino Transferase 37 U/L (14-36); Bilirubin,Total 0.6 mg/dL (0.2-1.3); Total Protein 7.8 g/dL (6.3-8.2)
== END 2024-12-06 10:01 | disposition home or self-care (01) ==
PROVIDERS: PCP Internal Medicine
DX: N18.30 Chronic kidney disease, stage 3 unspecified (principal)
CPT/HCPCS: 36415; 80069; 80076; 83970; 85027

== ENCOUNTER 2024-12-18 08:13 | Outpatient (CLI) | payer MEDICARE, SELFPAY ==
--- NOTE | ~2024-12-18 | US_ITS ---
US right upper quadrant Indication: Abnormal Liver Enzymes Comparison: None Technique: Venegas-scale and color Doppler images were obtained. Findings: LIVER: Moderate increased echogenicity of the liver. . GALLBLADDER/BILIARY: Unremarkable.No cholelithiais, wall thickening or pericholecystic fluid. No biliary dilatation. CBD 5 mm. Charlotte sign negative. PANCREAS: Pancreas demonstrates peripancreatic lesions adjacent to the pancreatic head the largest 2.6 x 3.1 cm. Right Kidney: Right kidney was not imaged. Impression: Peripancreatic lesions incompletely evaluated. Contrast-enhanced CT recommended Reviewed, dictated and finalized at location P. Impression: Peripancreatic lesions incompletely evaluated. Contrast-enhanced CT recommended
--- OUTSIDE RECORDS SUMMARY | 2024-12-18 08:26 | XMS_ITS | Encounter Summary ---
Author Organization [facility] Address [address] [place] [address] Care Team Providers Care Pharmacy Clinical Specialist Name Role Phone Jarrett Ang MD Unavailable [phone] Tyrese Farias MD Primary Care Provider [phone] Manas Devlin MD Unavailable [phone] Radha Griffiths [facility]- Unavailable [phone] Hola Kahn MD Unavailable [phone] Encounter Details Date Type Department Care Team (Late st Contact Info) Description 04/14/2023 Hospital Orders Only [employer] [facility] Pre/Post [address] [place] [address] Marlon Mejia MD [address] [facility], [address] [place] [address] Social History Tobacco Use Types Packs/Day Years [...] st Contact Info) Description 01/02/2025 12:30 PM ENVIRONMENTAL SAMPLER Office Visit [facility] [phone] Hola Kahn MD [address] [address] documented as of this encounter Visit Diagnoses Not on filedocumented in this encounter Care Teams Pharmacy Clinical Specialist Relationship Specialty Start Date End Date Tyrese Farias MD [address] [place] [address] PCP - General INTERNAL MEDICINE 04/13/22 Jarrett Ang MD [address] [place] [phone] Consulting Physician CARDIOVASCULAR DISEASE 07/07/19 Manas Devlin MD [address] [place] [phone] INTERVENTIONAL CARDIOLOGY 10/06/23 04/28/24 Radha Griffiths [facility] [address] [place] [address] Nurse Practitioner NURSE PRACTITIONER ADULT HEALTH 10/06/23 Hola Kahn MD [address] [address] Physician INTERVENTIONAL CARDIOLOGY 04/28/24 documented as of this encounter
--- OUTSIDE RECORDS SUMMARY | 2024-12-18 08:26 | XMS_ITS | Encounter Summary ---
Author Organization [facility] Address [address] [place] [address] Care Team Providers Care Supervisor Printing And Stamping Name Role Phone Jarrett Ang MD Unavailable [phone] Tyrese Farias MD Primary Care Provider [phone] Manas Devlin MD Unavailable [phone] Radha Griffiths [facility]- Unavailable [phone] Hola Kahn MD Unavailable [phone] Encounter Details Date Type Department Care Team (Late st Contact Info) Description 06/03/2023 Hospital Follow-up Call [facility] Cardiovascular Care Unit [address] [place] [address] Jaclyn Reese, RN Social History Tobacco Use Types Packs/Day Years Used Date Smoking Tobacco: Former Cigarettes Q uit: 2008 Smokeless Tobacco: Never Alcohol Use Standard Drinks/Week Comments Never 0 (1 standard drink = 0.6 oz pur e alcohol) 5 per month [facility] Utilities Answer Date Recorded In the past 12 months has e [employer], gas, oil, or water [employer] threatened to shut off services in your [...] any time in the past 12 m [facility], were you homeless or living [...] Author Status No 06/01/2023 12:58 PM DARNELLT Alei Moreno RN Active * Do you have [...] st Contact Info) Description 01/02/2025 12:30 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 Office Visit [facility] [place] [address] Hola Kahn MD [address] [place] [address] [address] documented as of this encounter Visit Diagnoses Not on filedocumented in this encounter Care Teams Supervisor Printing And Stamping Relationship Specialty Start Date End Date Tyrese Farias MD [address] [place] [phone] PCP - General INTERNAL MEDICINE 04/13/22 Jarrett Ang MD [address] [place] [phone] Consulting Physician CARDIOVASCULAR DISEASE 07/07/19 Manas Devlin MD [address] [place] [address] INTERVENTIONAL CARDIOLOGY 10/06/23 04/28/24 Radha Griffiths, [facility]- [address] [place] [address] Nurse Practitioner NURSE PRACTITIONER ADULT HEALTH 10/06/23 Hola Kahn MD [address] [address] Physician INTERVENTIONAL CARDIOLOGY 04/28/24 documented as of this encounter
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
--- OUTSIDE RECORDS SUMMARY | 2024-12-18 08:26 | XMS_ITS | Patient Health Record ---
Author Organization [facility] Address [address] [place], [place] [id number] Care Team Providers Care Toolroom Clerk Name Role Phone ALLIE Evangelista Unavailable [phone] Indra Li Unavailable Unavailable Allergies No Known Allergies Reason For Referral No Information Medications Medication SIG (Take, Route, Frequency, Duration) Notes Start Date End Date Status Medrol Dosepak ORAL Medrol DosepakOr iginal MedicationMedrol Dosepak *Reorder from Research Journalist for eRx and Interaction Alerts* 12/23/2020 Active Social History Social History Additional Details Category Social Info Options Details Migrated Social History Migrated Social History History of tobacco use : , Smoking Status : Former tobacco user , Alcohol intake : Plan Of Treatment No Information Insurance Providers Payer Name Payer Address Payer Phone Subscriber Number Group Number Insured Name Patient Relationship to Insured Coverage Start Date Coverage End Date [facility] [address] [place] [address] [id number] VANE RAMIREZ Self - patient is the insured
[2024-12-18 09:42] LABS: Albumin Level 4.5 g/dL (3.5-5.1); Anion Gap 13 mmol/L (4-12); Blood Urea Nitrogen 30 mg/dL (7-17); Calcium 10.4 mg/dL (8.4-10.2); Carbon Dioxide 25 mmol/L (22-30); Chloride 102 mmol/L (98-107); Estimated Glomerular Filt Rate 28; Glucose 141 mg/dL (65-110); Osmolality Calculated 298 mOsm/kg (285-295); Potassium 4.6 mmol/L (3.4-5.0); Sodium 140 mmol/L (137-145)
== END 2024-12-18 08:14 | disposition home or self-care (01) ==
LOC: CHSIMG 08:16
PROVIDERS: PCP Internal Medicine; Visit Provider Internal Medicine
DX: R94.5 Abnormal results of liver function studies (principal); N18.30 Chronic kidney disease, stage 3 unspecified; K86.9 Disease of pancreas, unspecified
CPT/HCPCS: 36415; 76705; 80069

== ENCOUNTER 2025-01-09 11:59 | Outpatient (CLI) | payer MEDICARE, SELFPAY ==
--- NOTE | ~2025-01-09 | XR_ITS ---
EXAMINATION: XR shoulder RT min 2V, 01/09/2025 12:00 [employer]ERAL DISTRICT CLERK HISTORY: R Shoulder Pain COMPARISON: No comparisons available. Findings: No acute fracture or malalignment. No significant degenerative changes. Soft tissues unremarkable. Impression: No acute fracture or malalignment. Reviewed, dictated and finalized at location P. RAL DISTRICT CLERK Impression: No acute fracture or malalignment.
[2025-01-09 12:33] LABS: Alanine Aminotransferase 67 U/L (6-35); Albumin Level 4.8 g/dL (3.5-5.1); Alkaline Phosphatase 84 U/L (38-126); Anion Gap 14 mmol/L (4-12); Aspartate Amino Transferase 47 U/L (14-36); Bilirubin,Total 0.5 mg/dL (0.2-1.3); Blood Urea Nitrogen 23 mg/dL (7-17); CRP < 0.5 mg/dL (<1.0); Calcium 10.0 mg/dL (8.4-10.2); Carbon Dioxide 25 mmol/L (22-30); Chloride 102 mmol/L (98-107); Estimated Glomerular Filt Rate 30; Glucose 119 mg/dL (65-110); Osmolality Calculated 296 mOsm/kg (285-295); Potassium 4.5 mmol/L (3.4-5.0); Sodium 141 mmol/L (137-145); Total Protein 7.5 g/dL (6.3-8.2)
== END 2025-01-09 12:00 | disposition home or self-care (01) ==
LOC: CHSLAB 12:01
PROVIDERS: PCP Internal Medicine; Visit Provider Internal Medicine
DX: M25.511 Pain in right shoulder (principal); R94.5 Abnormal results of liver function studies
CPT/HCPCS: 36415; 73030; 80053; 86140